=== PATIENT | female | born 1940 | race Caucasian/White ===

== ENCOUNTER 2016-04-03 12:33 | Observation (INO) ==
--- NOTE | 2016-04-03 14:07 | General Surg History&Physical ---
<Rosalia Arroyo - Last Filed: 04/03/16 15:46> Date of Encounter: 04/03/16 Time of Encounter: 14:04 Assessment and Plan (1) Hematoma of right lower extremity Current Visit: Yes Status: Acute The assessment and plan as outlined above was discussed with the patient and/or family members who expressed understanding and agreement. All questions were answered. hematoma evacuation today NPO except meds IVF pain control supportive care Qualifiers: Encounter type: initial encounter Qualified Code(s): S80.11XA - Contusion of right lower leg, initial encounter (2) Paroxysmal a-fib Current Visit: Yes Status: Acute continue home medications - propafenone and cardizem hold coumadin due to surgery (3) HTN (hypertension) Current Visit: Yes Status: Acute continue home medication - atenolol Qualifiers: Hypertension type: essential hypertension Qualified Code(s): I10 - Essential (primary) hypertension (4) DVT prophylaxis Current Visit: Yes Status: Acute heparin 5,000 units subcutaneous for DVT prophylaxis History of Present Illness Chief complaint: hematoma of right lower leg HPI: Ms. Block is a 76 year old female on chronic coumadin therapy that fell on and was bruised from mid thigh to mid calf. She now has a 15x10 cm tense painful accumulation with overlying skin necrosis from upper medial to right lower leg. Findings are consistent with a tense hematoma causing skin necrosis and severe pain. Past Med Surg Social Fam HX - Past Medical History Medical history: atrial fibrillation (paroxysmal), GERD, hyperlipidemia, hypertension, valvular heart disease (aortic regurgitation) Psychiatric history: anxiety - Past Surgical History Surgical History: non-contributory - Social History Smoking Status: Never smoker Smokeless Tobacco Status: No Alcohol use: none Drug use: none Medications and Allergies Warfarin [Coumadin] 4 mg PO DAILY 06/07/15 [History] Famotidine [Pepcid] 20 mg PO BID #60 tablet 10/20/15 [Rx] Alprazolam [Xanax 0.25 MG Tablet] 0.25 mg PO BID PRN 03/19/16 [History] Ascorbate Calcium/Bioflavonoid [Jenae-C 500 mg Tablet] 500 mg PO DAILY 03/19/16 [History] Aspirin 81 mg PO DAILY 03/19/16 [History] Atenolol [Tenormin] 50 mg PO BID 03/19/16 [History] Cholecalciferol (D-3) [Vitamin D] 1,000 unit PO DAILY 03/19/16 [History] Doxepin [Sinequan] 25 mg PO HS 03/19/16 [History] Garlic [Odor Free Garlic] 1,000 mg PO DAILY 03/19/16 [History] Glucosamn/Condroitn/C/Mn/[place] [Cvs Glucosamine Chondroitin Tb] 1 tab PO DAILY 03/19/16 [History] L. Acidophilus/Pectin, [place] [Acidophilus Probiotic Capsule] 1 cap PO DAILY [History] Magnesium Oxide [Magnesium] 250 mg PO BID 03/19/16 [History] Meclizine HCl [Verticalm] 25 mg PO BID PRN 03/19/16 [History] Multivitamin [One Daily Essential] 1 tab PO DAILY 03/19/16 [History] [place]-3/Dha/Epa/Fish Oil [Fish Oil 1,000 mg Softgel] 1,000 mg PO DAILY 03/19/16 [History] Polyethylene Glycol 3350 [MiraLAX] 17 gm PO DAILY 03/19/16 [History] Potassium Gluconate 550 mg PO DAILY 03/19/16 [History] Propafenone HCl [Propafenone HCl] 150 mg PO TID 03/19/16 [History] Raloxifene [Evista] 60 mg PO DAILY 03/19/16 [History] Rosuvastatin [Crestor] 20 mg PO DAILY 03/19/16 [History] Vitamin B Complex Vit C No.4 [Super B Complex] 150 mg PO DAILY 03/19/16 [History ] Diltiazem CD (24hr) [Cardizem CD] 120 mg PO DAILY 04/03/16 [History] Hydrocodone/Acetaminophen [[place] 5-325 Tablet] 1 tab PO Q6H PRN 04/03/16 [ History] Allergies No Known Allergies Allergy (Verified 06/07/15 11:49) Review of Systems All systems PM: A 10-system review of systems was performed and is negative for pertinent findings except as documented above in the HPI. - Constitutional no fever(s), no weight loss - EENT Ears: bilateral: decreased hearing Nose, mouth and throat: hoarseness (occasionally), no dysphagia - Cardiovascular claudication, pedal edema, no chest pain, no irregular heart rhythm, no palpitations - Respiratory dyspnea on exertion, no cough, no dyspnea, no hemoptysis, no excessive phlegm production - Gastrointestinal constipation, no abdominal pain, no change in stool character, no diarrhea, no hematochezia, no nausea, no vomiting - Genitourinary Genitourinary: nocturia, urinary frequency (drinks a lot of fluid/water), no dysuria, no hematuria - Musculoskeletal arthralgias, no myalgias - Integumentary no rash - Neurological dizziness, no headache(s) General Surgery Exam Initial Vital Signs Temp Pulse Resp BP Pulse Ox 97.9 F 63 16 149/72 97 04/03/16 13:14 04/03/16 13:14 04/03/16 13:14 04/03/16 13:14 04/03/16 13:14 - General physical appearance well developed, well nourished, no distress - Eyes PERRL, normal ocular movement - ENT normal mucosa, atraumatic, normocephalic - Neck trachea midline - Respiratory normal respiratory effort, clear to auscultation - Cardiovascular Cardiovascular exam: Present: RRR - Abdomen Abdomen general surgery: Present: bowel sounds present, soft, non tender - Integumentary Integumentary general surgery: Present: other (15x10 cm tense, painful accumulation with overlying skin necrosis from upper medial to right lower leg consistent with tense hematoma causing skin necrosis and severe pain) - Neurologic Present: CN 2-12 grossly intact - Psychiatric Psychiatric general surgery: Present: A&Ox3, speech is normal, memory intact Results - Labs All other labs normal. <Job Hall - Last Filed: 04/03/16 19:32> History of Present Illness HPI: Ms. Block is a 76 year old female Review of Systems All systems PM: A 10-system review of systems was performed and is negative for pertinent findings except as documented above in the HPI. General Surgery Exam Initial Vital Signs Temp Pulse Resp BP Pulse Ox 97.9 F 63 16 149/72 97 04/03/16 13:14 04/03/16 13:14 04/03/16 13:14 04/03/16 13:14 04/03/16 13:14 Results - Labs All other labs normal. - Attending Attestation I examined this patient and my medical decision-making was reviewed with the AIRCRAFT MECHANIC ELECTRICAL AND RADIO/PA/Advanced Practice Nurse/Resident Physician. I agree with the documented findings, disposition and treatment plan as described except to the extent set forth below. Job Hall MD FACS
[2016-04-03] MEDS ORDERED: ALPRAZolam 0.25 MG TABLET PO PRN ×2 (15:26→20:23)
[2016-04-03] MEDS ORDERED: Ondansetron 4 MG/2 ML VIAL IVP PRN ×2 (15:32→20:23)
[2016-04-03] MEDS ORDERED: *HR* HYDROmorphone (PF) 1 MG/ML SYRINGE IVP PRN ×2 (15:32)
[2016-04-03] MEDS ORDERED: Water for inj. (sterile) 0 ML IV ONE (15:35)
[2016-04-03] MEDS ORDERED: Bupivacaine/EPI 1:200k 0.5%PF 10 ML VIAL ONE (15:35)
[2016-04-03] MEDS ORDERED: 0.9 % Sodium Chloride 1,000 ML IVC SCH (15:45)
--- NOTE | 2016-04-03 18:34 | Anesthesia Evaluation PreOp ---
Date of Encounter: 04/03/16 Time of Encounter: 18:28 - Past History Planned Operation: Right Lower Extremity Hematoma Evacuation Cardiac History: HTN, Hyperlipidemia, Arrhythmia (H/O A-Fib) Pulmonary History: Denies Any Significant HX FINANCE ADVISOR History: Denies Any Significant HX Other Medical History: GERD Anesthesia History: No Prior Anesthetic Complications, Past Anesthesia Alcohol Use: none Drug use: none Medications and Allergies Warfarin [Coumadin] 4 mg PO DAILY 06/07/15 [History] Famotidine [Pepcid] 20 mg PO BID #60 tablet 10/20/15 [Rx] Alprazolam [Xanax 0.25 MG Tablet] 0.25 mg PO BID PRN 03/19/16 [History] Ascorbate Calcium/Bioflavonoid [Jenae-C 500 mg Tablet] 500 mg PO DAILY 03/19/16 [History] Aspirin 81 mg PO DAILY 03/19/16 [History] Atenolol [Tenormin] 50 mg PO BID 03/19/16 [History] Cholecalciferol (D-3) [Vitamin D] 1,000 unit PO DAILY 03/19/16 [History] Doxepin [Sinequan] 25 mg PO HS 03/19/16 [History] Garlic [Odor Free Garlic] 1,000 mg PO DAILY 03/19/16 [History] Glucosamn/Condroitn/C/Mn/[place] [Cvs Glucosamine Chondroitin Tb] 1 tab PO DAILY 03/19/16 [History] L. Acidophilus/Pectin, [place] [Acidophilus Probiotic Capsule] 1 cap PO DAILY [History] Magnesium Oxide [Magnesium] 250 mg PO BID 03/19/16 [History] Meclizine HCl [Verticalm] 25 mg PO BID PRN 03/19/16 [History] Multivitamin [One Daily Essential] 1 tab PO DAILY 03/19/16 [History] [place]-3/Dha/Epa/Fish Oil [Fish Oil 1,000 mg Softgel] 1,000 mg PO DAILY 03/19/16 [History] Polyethylene Glycol 3350 [MiraLAX] 17 gm PO DAILY 03/19/16 [History] Potassium Gluconate 550 mg PO DAILY 03/19/16 [History] Propafenone HCl [Propafenone HCl] 150 mg PO TID 03/19/16 [History] Raloxifene [Evista] 60 mg PO DAILY 03/19/16 [History] Rosuvastatin [Crestor] 20 mg PO DAILY 03/19/16 [History] Vitamin B Complex Vit C No.4 [Super B Complex] 150 mg PO DAILY 03/19/16 [History ] Diltiazem CD (24hr) [Cardizem CD] 120 mg PO DAILY 04/03/16 [History] Hydrocodone/Acetaminophen [[place] 5-325 Tablet] 1 tab PO Q6H PRN 04/03/16 [ History] Allergies No Known Allergies Allergy (Verified 06/07/15 11:49) - Meds/Allergy Pre-op Review Medications Reviewed: Yes Allergies Reviewed: Yes Beta Blockers on Current Med List: Yes If Beta Blockers taken, Date/Time (Last Dose taken): 04/02/2016 at 2300 Anesthesia Results - Labs Laboratory Tests 01/06/14 02/10/15 11/15/15 06:35 16:29 09:21 WBC Hgb Hct Plt Count PT 24.0 H INR 2.21 PTT 30.7 Sodium 137 Potassium 3.9 BUN 6 L Creatinine 0.73 11/24/15 09:40 WBC 3.8 L Hgb 13.9 Hct 41.0 Plt Count 179 PT INR PTT Sodium Potassium BUN Creatinine - Imaging EKG: report reviewed (10/20/2015 SR, 1st degree AV block, marked LAD) Additional studies: 12/14/2015 Echo LVEF 60% modrate LV disatolic dysfunction moderate eccentric AR mild-moderate MR moderate TR mild pulmonary HTN 12/01/2015 Stress Echo Stress ECG is negative for ischemia negative stress ECG/echo for ischemia hypotensive BP response to exercise Anesthesia Exam Vital Signs/O2 Sat, Most Current Temp Pulse Resp BP Pulse Ox 98.2 F 57 16 151/76 98 04/03/16 15:14 04/03/16 15:14 04/03/16 15:14 04/03/16 15:14 04/03/16 15:14 Height: 5'1''/1.55 m Weight: 151 lbs/68.6 kg NPO (# of Hours): 8 Pain Scale: 0 Pain Scale Used: Numeric (1 - 10) - HEENT Pupil (Motor): EOMI Mallampati: II Teeth: Normal Denture Type: Upper: Complete Oral Opening: Greater than 3 - FINANCE ADVISOR LOC: Oriented FINANCE ADVISOR Motor: Normal RUE, Normal LUE, Normal RLE, Normal LLE, Normal Face FINANCE ADVISOR Sensory: Normal: RUE, LUE, RLE, LLE, Face - Cardiac Rhythm: Regular Murmur: Systolic - Pulmonary Breath Sounds: bilateral Clear Respiratory Effort: Symmetrical Anesthesia Assess/Plan ASA Score: 3 Modified [place] Scale for Level of Consciousness: Cooperative, oriented, and tranquil Anesthetic Plan: General Monitoring Plan: Standard Monitors Recovery Plan: PACU
[2016-04-03] MEDS ORDERED: *HR* FentaNYL (PF) 100 MCG/2 ML VIAL ONE ×2 (18:49→19:10)
[2016-04-03] MEDS ORDERED: *HR* Propofol 200 MG/20 ML VIAL IVP ONE (18:49)
[2016-04-03] MEDS ORDERED: Lidocaine -MPF 2% 2 ML VIAL ONE (18:50)
[2016-04-03] MEDS ORDERED: EPHEDrine 50 MG/ML VIAL ONE (19:17)
[2016-04-03] MEDS ORDERED: Ondansetron 4 MG/2 ML VIAL ONE (19:21)
[2016-04-03] MEDS ORDERED: Dexamethasone 4 MG/ML VIAL ONE (19:21)
--- NOTE | 2016-04-03 19:31 | Operative Note ---
Date of procedure: 04/03/16 Pre-op diagnosis: Hematoma right lower extremity with skin necrosis Post-op diagnosis: same Procedure: #1 evacuation of hematoma right lower extremity. #2 full-thickness debridement of skin to the level of fascia Anesthesia: PER Surgeon: Job Hall Estimated blood loss (cc): 25 Specimen: none Condition: stable Disposition: PACU Procedure in Detail: After informed consent and appropriate patient identification and timeout the patient is taken to the operating room placed in the supine position and given adequate general endotracheal anesthesia. Timeout was taken patient was identified. The right leg was prepped and draped in sterile fashion utilizing Betadine solution and sterile draping techniques. There was a central area of skin necrosis. Lateralizing sara was identified. A vertical incision was made overlying the thinnest area of the skin and the hematoma cavity was entered. A large amount of hematoma was evacuated. The hematoma extended from the level of the periosteum to the level of the epidermis. The overlying epidermis was debrided full-thickness and this was to the level of the fascia. The hematoma was completely evacuated and the cavity was irrigated with copious amounts of antibiotic containing solution. The wound was packed with saline impregnated Kerlix. She will be converted to negative pressure wound dressing tomorrow. Minimal bleeding. 25 mL blood loss. Transferred to the recovery room in stable condition.
--- NOTE | 2016-04-03 19:59 | Anesthesia Evaluation Post Op ---
Date of Encounter: 04/03/16 Time of Encounter: 23:45 - Vital Signs Vital Signs: Vital Signs/O2 Sat/Glucose, Most Current Temp Pulse Resp BP Pulse Ox 04/03/16 19:55 67 14 152/73 97 04/03/16 19:45 64 12 142/67 96 04/03/16 19:35 97.0 F L 63 10 138/67 98 - Lungs Lungs: Clear Ascult./Percussion - Airway Airway: Non-obstructed - Cardiovascular Regular Rate - Mental Status Mental Status: Alert & Oriented, Answers Appropriately - Pain Pain Scale: 0 - Nausea Vomiting Nausea Vomiting: Not Present - Hydration Hydration: Ice chips - Discharge PostOp Status: Transfer Patient to floor
[2016-04-03] MEDS ORDERED: Famotidine 20 MG TABLET PO SCH (21:00)
[2016-04-03] MEDS: Famotidine 20 MG TABLET PO SCH (21:23)
[2016-04-04] MEDS: 0.9 % Sodium Chloride 1,000 ML IVC SCH (04:33)
[2016-04-04] MEDS: Diltiazem CD (24hr) 120 MG CAPSULE PO SCH (06:25)
--- NOTE | 2016-04-04 07:18 | General Surgery Progress Note ---
<Rosalia Arroyo - Last Filed: 04/04/16 07:16> Date of Encounter: 04/04/16 Time of Encounter: 07:16 - Assessment and Plan (1) Hematoma of right lower extremity Current Visit: Yes Status: Acute POD #1 evacuation of hematoma wound is currently bleeding - elevated leg, calcium algonate dressings hold coumadin and heparin pain control supportive care Qualifiers: Encounter type: initial encounter Qualified Code(s): S80.11XA - Contusion of right lower leg, initial encounter (2) Paroxysmal a-fib Current Visit: Yes Status: Acute Cardizem and Rhythmol coumadin being held due to active bleeding (3) HTN (hypertension) Current Visit: Yes Status: Acute atenolol hydralazine PRN Qualifiers: Hypertension type: essential hypertension Qualified Code(s): I10 - Essential (primary) hypertension (4) DVT prophylaxis Current Visit: Yes Status: Acute SCD to left leg only Subjective Patient reports: no new complaints, afebrile, other (bleeding from leg) Objective Vital Signs - Last 8 Hours Temp Pulse Resp BP Pulse Ox 04/04/16 04:00 97.9 F 71 16 112/69 94 L 04/03/16 23:37 98.1 F 63 14 144/73 96 Intake and Output 04/03/16 04/03/16 04/04/16 15:59 23:59 07:59 Intake Total 0 / 0 200 / 200 Output Total 1760 / 1760 Balance 0 / 0 -1560 / -1560 Intake: Oral 0 / 0 200 / 200 Output: Urine 1750 / 1750 Estimated Blood Loss 10 / 10 Other: Stool Size Moderate Stool Consistency soft Stool Color Brown # Voids 1 Weight 68.6 kg - General physical appearance well developed, well nourished, no distress - Eyes normal ocular movement - ENT normal mucosa, atraumatic, normocephalic - Neck Neck exam: trachea midline - Respiratory normal respiratory effort, clear to auscultation - Cardiovascular Cardiovascular exam: Present: RRR - Abdomen Abdomen: Present: bowel sounds present, soft, non tender - Integumentary no rash, other (abd pad dressing with some blood on underside) - Neurologic CN 2-12 grossly intact - Musculoskeletal normal gait, normal posture - Psychiatric oriented to time, oriented to person, oriented to place, speech is normal, memory intact - VTE Documentation of Mechanical Device: Intermittent pneumatic compression device Consult Discharge Plan - Plan Referrals: Diya Donahue CNP [Partnered Physician] - 05/24/16 10:30 am Soila De León MD [Partnered Physician] - 09/07/16 10:20 am Allison Contreras MD [Primary Care Provider] - <Job Hall - Last Filed: 04/05/16 07:44> Objective Vital Signs - Last 8 Hours Temp Pulse Resp BP Pulse Ox 04/05/16 06:42 97.6 F 73 16 119/67 95 04/05/16 00:00 97.8 F 64 17 115/71 96 Intake and Output 04/04/16 04/04/16 04/05/16 15:59 23:59 07:59 Intake Total 480 / 480 810 / 810 Output Total 1225 / 1225 800 / 800 Balance 480 / 480 -415 / -415 -800 / -800 Intake: Oral 480 / 480 810 / 810 Output: Urine 1225 / 1225 800 / 800 Other: Meal Lunch Dinner Percent of Meal Consumed 50% # Voids 1 2 - Attending Attestation I examined this patient and my medical decision-making was reviewed with the RAG INSPECTOR/PA/Advanced Practice Nurse/Resident Physician. I agree with the documented findings, disposition and treatment plan as described except to the extent set forth below. Job Hall MD FACS
[2016-04-04] MEDS ORDERED: Diltiazem CD (24hr) 120 MG CAPSULE PO SCH (09:00)
[2016-04-04] MEDS: *HR* OxyCODONE/APAP 10/325 TABLET PO PRN (15:14)
[2016-04-04] MEDS ORDERED: *HR* Heparin 5,000 UNIT/ML VIAL SQ SCH (15:39)
[2016-04-04] MEDS: Famotidine 20 MG TABLET PO SCH (20:24)
[2016-04-05] MEDS: Diltiazem CD (24hr) 120 MG CAPSULE PO SCH (08:15)
--- NOTE | 2016-04-05 13:19 | Discharge Summary ---
Date of Encounter: 04/05/16 Time of Encounter: 13:16 - Discharge Diagnosis (1) Hematoma of right lower extremity Priority: Primary Status: Acute Qualifiers: Encounter type: initial encounter Qualified Code(s): S80.11XA - Contusion of right lower leg, initial encounter (2) Paroxysmal a-fib Priority: Secondary Status: Acute (3) HTN (hypertension) Priority: Secondary Status: Acute Qualifiers: Hypertension type: essential hypertension Qualified Code(s): I10 - Essential (primary) hypertension (4) DVT prophylaxis Priority: Secondary Status: Acute - Discharge Medications Prescriptions: OxyCODONE/APAP 10/325 [Percocet 10/325 MG] 1 each PO Q6HR PRN #24 tablet PRN Reason: Pain Home Medications: Warfarin [Coumadin] 4 mg PO DAILY 06/07/15 [History] Famotidine [Pepcid] 20 mg PO BID #60 tablet 10/20/15 [Rx] Alprazolam [Xanax 0.25 MG Tablet] 0.25 mg PO BID PRN 03/19/16 [History] Ascorbate Calcium/Bioflavonoid [Jenae-C 500 mg Tablet] 500 mg PO DAILY 03/19/16 [History] Aspirin 81 mg PO DAILY 03/19/16 [History] Atenolol [Tenormin] 50 mg PO BID 03/19/16 [History] Cholecalciferol (D-3) [Vitamin D] 1,000 unit PO DAILY 03/19/16 [History] Doxepin [Sinequan] 25 mg PO HS 03/19/16 [History] Garlic [Odor Free Garlic] 1,000 mg PO DAILY 03/19/16 [History] Glucosamn/Condroitn/C/Mn/[place] [Cvs Glucosamine Chondroitin Tb] 1 tab PO DAILY 03/19/16 [History] L. Acidophilus/Pectin, [place] [Acidophilus Probiotic Capsule] 1 cap PO DAILY [History] Magnesium Oxide [Magnesium] 250 mg PO BID 03/19/16 [History] Meclizine HCl [Verticalm] 25 mg PO BID PRN 03/19/16 [History] Multivitamin [One Daily Essential] 1 tab PO DAILY 03/19/16 [History] [place]-3/Dha/Epa/Fish Oil [Fish Oil 1,000 mg Softgel] 1,000 mg PO DAILY 03/19/16 [History] Polyethylene Glycol 3350 [MiraLAX] 17 gm PO DAILY 03/19/16 [History] Potassium Gluconate 550 mg PO DAILY 03/19/16 [History] Propafenone HCl 150 mg PO TID 03/19/16 [History] Raloxifene [Evista] 60 mg PO DAILY 03/19/16 [History] Rosuvastatin [Crestor] 20 mg PO DAILY 03/19/16 [History] Vitamin B Complex Vit C No.4 [Super B Complex] 150 mg PO DAILY 03/19/16 [History ] Diltiazem CD (24hr) [Cardizem CD] 120 mg PO DAILY 04/03/16 [History] Hydrocodone/Acetaminophen [[place] 5-325 Tablet] 1 tab PO Q6H PRN 04/03/16 [ History] OxyCODONE/APAP 10/325 [Percocet 10/325 MG] 1 each PO Q6HR PRN #24 tablet [Rx] Allergies/Adverse Reactions: Allergies No Known Allergies Allergy (Verified 06/07/15 11:49) General Surgery Exam Initial Vital Signs Temp Pulse Resp BP Pulse Ox 97.9 F 63 16 149/72 97 04/03/16 13:14 04/03/16 13:14 04/03/16 13:14 04/03/16 13:14 04/03/16 13:14 - General physical appearance well developed, well nourished, no distress - Eyes normal ocular movement - ENT normal mucosa, atraumatic, normocephalic - Neck trachea midline - Respiratory normal respiratory effort, clear to auscultation - Cardiovascular Cardiovascular exam: Present: RRR - Abdomen Abdomen general surgery: Present: bowel sounds present, soft, non tender - Integumentary Integumentary general surgery: Present: warm and dry - Neurologic Present: CN 2-12 grossly intact, normal coordination - Musculoskeletal Present: normal gait - Psychiatric Psychiatric general surgery: Present: A&Ox3, speech is normal, memory intact - Additional Findings dressing intact to right LE Date of admission: 04/03/16 12:48 Primary care physician: Allison Contreras Discharging clinician: Rosalia Arroyo Anticipated date of discharge: 04/05/16 - Patient Status Disposition: Home Health Service Condition: Good Functional capacity at discharge: independent ambulation Overall status at discharge: patient is back to baseline - Discharge Instructions Follow Up With: Diya Donahue CNP [Partnered Physician] - 05/24/16 10:30 am Soila De León MD [Partnered Physician] - 09/07/16 10:20 am Allison Contreras MD [Primary Care Provider] - Additional Instructions: Restart your coumadin tomorrow. Do NOT take any additional doses. Wait 1 week before having your INR checked. - Diet and Activity Activity: resume usual activities as tolerated Diet: regular diet - Hospital Course Hospital course: Ms. Block is a 76 year old female on chronic coumadin therapy that fell beth and bruised from mid thigh to mid calf. She had a 15x10 cm tense paiinful accumulation with overlying skin necrosis upper medial right lower leg. Findings consistent with tense hematoma. The hematoma was evacuated in the OR, the area packed, and dressing applied. Her coumadin and aspirin were held after surgery due to active bleeding. Dressings were changed daily. - Time Spent with Patient Total time spent providing and/or coordinating discharge services:
--- NOTE | 2016-04-05 13:54 | Physician Discharge Referral ---
Home Health/Hosp Referral Info Transfer to: Home Health Provider in Charge Post Discharge: PCP - Diagnosis (1) Hematoma of right lower extremity Priority: Primary Status: Acute (2) Paroxysmal a-fib Priority: Secondary Status: Acute (3) HTN (hypertension) Priority: Secondary Status: Acute (4) DVT prophylaxis Priority: Secondary Status: Acute - Respiratory Orders Smoking Cessation: Smoking cessation has been advised. For more information, call the [facility] Tobacco Quit Line at 6-176-AXNV-NOW. - Dressing/Wound Care Site: right lower extremity Type of Dressing/Treatments w/Frequency: wound vac change M-W-F - Transfer Medications Prescriptions: OxyCODONE/APAP 10/325 [Percocet 10/325 MG] 1 each PO Q6HR PRN #24 tablet PRN Reason: Pain Home Medications: Warfarin [Coumadin] 4 mg PO DAILY 06/07/15 [History] Famotidine [Pepcid] 20 mg PO BID #60 tablet 10/20/15 [Rx] Alprazolam [Xanax 0.25 MG Tablet] 0.25 mg PO BID PRN 03/19/16 [History] Ascorbate Calcium/Bioflavonoid [Jenae-C 500 mg Tablet] 500 mg PO DAILY 03/19/16 [History] Aspirin 81 mg PO DAILY 03/19/16 [History] Atenolol [Tenormin] 50 mg PO BID 03/19/16 [History] Cholecalciferol (D-3) [Vitamin D] 1,000 unit PO DAILY 03/19/16 [History] Doxepin [Sinequan] 25 mg PO HS 03/19/16 [History] Garlic [Odor Free Garlic] 1,000 mg PO DAILY 03/19/16 [History] Glucosamn/Condroitn/C/Mn/[place] [Cvs Glucosamine Chondroitin Tb] 1 tab PO DAILY 03/19/16 [History] L. Acidophilus/Pectin, [place] [Acidophilus Probiotic Capsule] 1 cap PO DAILY [History] Magnesium Oxide [Magnesium] 250 mg PO BID 03/19/16 [History] Meclizine HCl [Verticalm] 25 mg PO BID PRN 03/19/16 [History] Multivitamin [One Daily Essential] 1 tab PO DAILY 03/19/16 [History] [place]-3/Dha/Epa/Fish Oil [Fish Oil 1,000 mg Softgel] 1,000 mg PO DAILY 03/19/16 [History] Polyethylene Glycol 3350 [MiraLAX] 17 gm PO DAILY 03/19/16 [History] Potassium Gluconate 550 mg PO DAILY 03/19/16 [History] Propafenone HCl 150 mg PO TID 03/19/16 [History] Raloxifene [Evista] 60 mg PO DAILY 03/19/16 [History] Rosuvastatin [Crestor] 20 mg PO DAILY 03/19/16 [History] Vitamin B Complex Vit C No.4 [Super B Complex] 150 mg PO DAILY 03/19/16 [History ] Diltiazem CD (24hr) [Cardizem CD] 120 mg PO DAILY 04/03/16 [History] Hydrocodone/Acetaminophen [[place] 5-325 Tablet] 1 tab PO Q6H PRN 04/03/16 [ History] OxyCODONE/APAP 10/325 [Percocet 10/325 MG] 1 each PO Q6HR PRN #24 tablet [Rx] Allergies/Adverse Reactions: Allergies No Known Allergies Allergy (Verified 06/07/15 11:49) Certification: Further, I certify that my clinical findings support that this patient is homebound (i.e. absences from home require considerable and taxing effort and are for medical reasons or restorationism services or infrequently or short duration when for other reasons) because: Attestation: My signature below is to certify that this patient is under my care and that I, or nurse practitioner, or a physician's orthodontic technician assistant working with me, has a face-to -face encounter with this patient.
[2016-04-05] MEDS: *HR* OxyCODONE/APAP 10/325 TABLET PO PRN (14:37)
--- NOTE | 2016-04-05 15:46 | General Surgery Progress Note ---
<Rosalia Arroyo - Last Filed: 04/05/16 15:44> Date of Encounter: 04/05/16 Time of Encounter: 15:44 - Assessment and Plan (1) Hematoma of right lower extremity Current Visit: Yes Status: Acute POD #2 evacuation of hematoma calcium alginate dressing, start wound vac tomorrow morning then discharge home patient may resume coumadin tomorrow upon d/c - no loading dose pain control supportive care Qualifiers: Encounter type: initial encounter Qualified Code(s): S80.11XA - Contusion of right lower leg, initial encounter (2) Paroxysmal a-fib Current Visit: Yes Status: Acute Cardizem and Rhythmol coumadin to be restarted tomorrow (3) HTN (hypertension) Current Visit: Yes Status: Acute atenolol hydralazine PRN Qualifiers: Hypertension type: essential hypertension Qualified Code(s): I10 - Essential (primary) hypertension (4) DVT prophylaxis Current Visit: Yes Status: Acute SCD to left leg only Subjective Patient reports: no new complaints, voiding w/o difficulty, afebrile Objective Vital Signs - Last 8 Hours Temp Pulse Resp BP Pulse Ox 04/05/16 14:08 98.7 F 86 18 136/58 97 04/05/16 11:08 98.7 F 81 16 133/54 98 Intake and Output 04/04/16 04/05/16 04/05/16 23:59 07:59 15:59 Intake Total 810 / 810 Output Total 1225 / 1225 800 / 800 Balance -415 / -415 -800 / -800 Intake: Oral 810 / 810 Output: Urine 1225 / 1225 800 / 800 Other: Meal Dinner # Voids 2 - General physical appearance well developed, well nourished, no distress - Eyes normal ocular movement - ENT normal mucosa, atraumatic, normocephalic - Neck Neck exam: trachea midline - Respiratory normal respiratory effort, clear to auscultation - Cardiovascular Cardiovascular exam: Present: RRR - Abdomen Abdomen: Present: bowel sounds present, soft, non tender - Integumentary no rash - Neurologic CN 2-12 grossly intact - Musculoskeletal normal gait - Psychiatric oriented to time, oriented to person, oriented to place, speech is normal, memory intact - Additional Exam dressing intact to right LE - VTE Documentation of Mechanical Device: Intermittent pneumatic compression device Consult Discharge Plan - Plan Additional Instructions: Restart your coumadin today. Do NOT take any additional doses. Wait 1 week before having your INR checked. May shower, no tub baths Wound vac- change every -- per home health care No driving while on narcotics May climb stairs Referrals: Diya Donahue CNP [Partnered Physician] - 05/24/16 10:30 am Kandi Nicole CNP [Advanced Practice Nurse] - 04/16/16 10:15 am (hospital follow-up; wound check) Soila De León MD [Partnered Physician] - 09/07/16 10:20 am Allison Contreras MD [Primary Care Provider] - Prescriptions: OxyCODONE/APAP 5/325 [Percocet 5/325 MG] 1 each PO Q8HR PRN #21 tablet PRN Reason: Pain <Job Hall - Last Filed: 04/06/16 19:18> Objective Intake and Output 04/06/16 04/06/16 04/06/16 07:59 15:59 23:59 Intake Total 850 / 850 1240 / 1240 Output Total 980 / 980 1800 / 1800 Balance -130 / -130 -560 / -560 Intake: IV Fluids 1000 / 1000 0.9 % Sodium Chloride 1, 1000 / 1000 000 ML @ 50 mls/hr IVC . Q20H NISHA Rx#:[id number] Oral 850 / 850 240 / 240 Output: Urine 980 / 980 1800 / 1800 Other: Meal Lunch Percent of Meal Consumed 25% - Attending Attestation I examined this patient and my medical decision-making was reviewed with the PROJECT CONTROLS SCHEDULER/PA/Advanced Practice Nurse/Resident Physician. I agree with the documented findings, disposition and treatment plan as described except to the extent set forth below. Job Hall MD
[2016-04-05] MEDS: 0.9 % Sodium Chloride 1,000 ML IVC SCH (17:51)
[2016-04-05] MEDS: Famotidine 20 MG TABLET PO SCH (21:54)
[2016-04-06 07:21] VITALS: BP 103/58
[2016-04-06] MEDS: Diltiazem CD (24hr) 120 MG CAPSULE PO SCH (08:16)
[2016-04-06] MEDS: 0.9 % Sodium Chloride 1,000 ML IVC SCH (14:56)
[2016-04-06] MEDS ORDERED: *HR* OxyCODONE/APAP 5/325 TABLET PO ONE (15:41)
--- NOTE | 2016-04-06 15:48 | Discharge Summary ---
<Kandi Nicole A - Last Filed: 04/06/16 15:45> Date of Encounter: 04/06/16 Time of Encounter: 15:45 - Discharge Diagnosis (1) Hematoma of right lower extremity Priority: Primary Status: Resolved Qualifiers: Encounter type: initial encounter Qualified Code(s): S80.11XA - Contusion of right lower leg, initial encounter (2) HTN (hypertension) Priority: Secondary Status: Chronic Qualifiers: Hypertension type: essential hypertension Qualified Code(s): I10 - Essential (primary) hypertension (3) Paroxysmal a-fib Priority: Secondary Status: Chronic - Discharge Medications Prescriptions: OxyCODONE/APAP 5/325 [Percocet 5/325 MG] 1 each PO Q8HR PRN #21 tablet PRN Reason: Pain Home Medications: Warfarin [Coumadin] 4 mg PO DAILY 06/07/15 [History] Famotidine [Pepcid] 20 mg PO BID #60 tablet 10/20/15 [Rx] Alprazolam [Xanax 0.25 MG Tablet] 0.25 mg PO BID PRN 03/19/16 [History] Ascorbate Calcium/Bioflavonoid [Jenae-C 500 mg Tablet] 500 mg PO DAILY 03/19/16 [History] Aspirin 81 mg PO DAILY 03/19/16 [History] Atenolol [Tenormin] 50 mg PO BID 03/19/16 [History] Cholecalciferol (D-3) [Vitamin D] 1,000 unit PO DAILY 03/19/16 [History] Doxepin [Sinequan] 25 mg PO HS 03/19/16 [History] Garlic [Odor Free Garlic] 1,000 mg PO DAILY 03/19/16 [History] Glucosamn/Condroitn/C/Mn/Ethel [Cvs Glucosamine Chondroitin Tb] 1 tab PO DAILY 03/19/16 [History] L. Acidophilus/Pectin, [place] [Acidophilus Probiotic Capsule] 1 cap PO DAILY [History] Magnesium Oxide [Magnesium] 250 mg PO BID 03/19/16 [History] Meclizine HCl [Verticalm] 25 mg PO BID PRN 03/19/16 [History] Multivitamin [One Daily Essential] 1 tab PO DAILY 03/19/16 [History] [place]-3/Dha/Epa/Fish Oil [Fish Oil 1,000 mg Softgel] 1,000 mg PO DAILY 03/19/16 [History] Polyethylene Glycol 3350 [MiraLAX] 17 gm PO DAILY 03/19/16 [History] Potassium Gluconate 550 mg PO DAILY 03/19/16 [History] Propafenone HCl 150 mg PO TID 03/19/16 [History] Raloxifene [Evista] 60 mg PO DAILY 03/19/16 [History] Rosuvastatin [Crestor] 20 mg PO DAILY 03/19/16 [History] Vitamin B Complex Vit C No.4 [Super B Complex] 150 mg PO DAILY 03/19/16 [History ] Diltiazem CD (24hr) [Cardizem CD] 120 mg PO DAILY 04/03/16 [History] OxyCODONE/APAP 5/325 [Percocet 5/325 MG] 1 each PO Q8HR PRN #21 tablet 04/06/16 [Rx] Allergies/Adverse Reactions: Allergies No Known Allergies Allergy (Verified 06/07/15 11:49) General Surgery Exam Initial Vital Signs Temp Pulse Resp BP Pulse Ox 97.9 F 63 16 149/72 97 04/03/16 13:14 04/03/16 13:14 04/03/16 13:14 04/03/16 13:14 04/03/16 13:14 - General physical appearance well developed, well nourished, no distress - Eyes normal ocular movement - ENT normal mucosa, atraumatic, normocephalic - Neck trachea midline - Respiratory normal expansion, normal respiratory effort, clear to auscultation - Cardiovascular Cardiovascular exam: Present: irregular rhythm - Abdomen Abdomen general surgery: Present: bowel sounds present, soft, non tender - Incision Incision: Present: draining, serosanguinous, open - Integumentary Integumentary general surgery: Present: warm and dry - Neurologic Present: CN 2-12 grossly intact, normal coordination, normal sensation - Musculoskeletal Present: normal gait, normal posture - Psychiatric Psychiatric general surgery: Present: appropriate, oriented to person, oriented to place, oriented to time, speech is normal, memory intact Date of admission: 04/03/16 12:48 Primary care physician: Allison Contreras Consults: 04/05/16 13:39 Consult to Coil Winder [CONS] Stat Reason for SW Consult: discharge planning- needs home wound vac (plan for discharge to home today, may deliver vac to home for home health to place when approved) 04/05/16 17:11 Consult to Occupational Therapy [CONS] Routine Comment: Evaluate, develop and implement POC Consult to Physical Therapy [CONS] Routine Comment: Evaluate, develop and implement POC Discharging clinician: Job Hall (Johnny Nicole) Anticipated date of discharge: 04/06/16 - Patient Status Disposition: Home Health Service Condition: Good Functional capacity at discharge: independent ambulation Overall status at discharge: patient is progressing back to baseline - Discharge Instructions Follow Up With: Diya Donahue CNP [Partnered Physician] - 05/24/16 10:30 am Soila De León MD [Partnered Physician] - 09/07/16 10:20 am Allison Contreras MD [Primary Care Provider] - Kandi Nicole CNP [Advanced Practice Nurse] - 04/16/16 10:15 am (hospital follow-up; wound check) Additional Instructions: Restart your coumadin today. Do NOT take any additional doses. Wait 1 week before having your INR checked. May shower, no tub baths Wound vac- change every M-W- per home health care No driving while on narcotics May climb stairs - Diet and Activity Activity: increase activity as tolerated Diet: advance to your usual diet - Hospital Course Hospital course: Ms. Block is a 76 year old female seen by Dr. Hall in the outpatient clinic for a RLE hematoma with necrosis. She was admitted to the hospital and taken to the operating room for evacuation of hematoma. Her coumadin therapy was help due to post-operative bleeding. Daily dressing changes have been completed and her post-op bleeding has stopped. We will convert her to a wound vac and plan to restart coumadin therapy today. Her vitals are stable and she is afebrile. Her pain is well controlled. We will begin discharge planning to home with home health care and plan for outpatient f/u with Dr. Hall in the next 10-14 days. - Time Spent with Patient Total time spent providing and/or coordinating discharge services: Less than 30 minutes - Attending Attestation I examined this patient and my medical decision-making was reviewed with the PSYCHIATRIC REGISTERED NURSE/PA/Advanced Practice Nurse/Resident Physician. I agree with the documented findings, disposition and treatment plan as described except to the extent set forth below. <Job Hall - Last Filed: 04/06/16 19:20> General Surgery Exam Initial Vital Signs Temp Pulse Resp BP Pulse Ox 97.9 F 63 16 149/72 97 04/03/16 13:14 04/03/16 13:14 04/03/16 13:14 04/03/16 13:14 04/03/16 13:14 Date of admission: 04/03/16 12:48 Primary care physician: Allison Contreras Consults: 04/05/16 13:39 Consult to Coil Winder [CONS] Stat Reason for SW Consult: discharge planning- needs home wound vac (plan for discharge to home today, may deliver vac to home for home health to place when approved) 04/05/16 17:11 Consult to Occupational Therapy [CONS] Routine Comment: Evaluate, develop and implement POC Consult to Physical Therapy [CONS] Routine Comment: Evaluate, develop and implement POC - Hospital Course Hospital course: Ms. Block is a 76 year old female - Time Spent with Patient Total time spent providing and/or coordinating discharge services: - Attending Attestation Job Hall MD
--- NOTE | 2016-04-06 15:58 | Physician Discharge Referral ---
Home Health/Hosp Referral Info Transfer to: Home Health Attending Provider: Dr. Job Hall Provider in Charge Post Discharge: PCP - Diagnosis (1) Hematoma of right lower extremity Priority: Primary Status: Resolved (2) HTN (hypertension) Priority: Secondary Status: Chronic (3) Paroxysmal a-fib Priority: Secondary Status: Chronic - Respiratory Orders None - Dressing/Wound Care Site: Right lower extremity Type of Dressing/Treatments w/Frequency: Wound vac- cleanse with soap and water, apply wound vac (medium black sponge) and place at 125mmHG continuous suction. Change every M-W- May shower, no tub bath - Diet/Nutrition Diet/Nutrition Orders: Regular - Activity Activity Orders: Up ad manpreet, Ambulate - Services Needed Following services are medically necessary services: Nursing - Transfer Medications Prescriptions: OxyCODONE/APAP 5/325 [Percocet 5/325 MG] 1 each PO Q8HR PRN #21 tablet PRN Reason: Pain Home Medications: Warfarin [Coumadin] 4 mg PO DAILY 06/07/15 [History] Famotidine [Pepcid] 20 mg PO BID #60 tablet 10/20/15 [Rx] Alprazolam [Xanax 0.25 MG Tablet] 0.25 mg PO BID PRN 03/19/16 [History] Ascorbate Calcium/Bioflavonoid [Jenae-C 500 mg Tablet] 500 mg PO DAILY 03/19/16 [History] Aspirin 81 mg PO DAILY 03/19/16 [History] Atenolol [Tenormin] 50 mg PO BID 03/19/16 [History] Cholecalciferol (D-3) [Vitamin D] 1,000 unit PO DAILY 03/19/16 [History] Doxepin [Sinequan] 25 mg PO HS 03/19/16 [History] Garlic [Odor Free Garlic] 1,000 mg PO DAILY 03/19/16 [History] Glucosamn/[place]n/C/Mn/[place] [Cvs Glucosamine Chondroitin Tb] 1 tab PO DAILY 03/19/16 [History] L. Acidophilus/Pectin, [place] [Acidophilus Probiotic Capsule] 1 cap PO DAILY [History] Magnesium Oxide [Magnesium] 250 mg PO BID 03/19/16 [History] Meclizine HCl [Verticalm] 25 mg PO BID PRN 03/19/16 [History] Multivitamin [One Daily Essential] 1 tab PO DAILY 03/19/16 [History] [place]-3/Dha/Epa/Fish Oil [Fish Oil 1,000 mg Softgel] 1,000 mg PO DAILY 03/19/16 [History] Polyethylene Glycol 3350 [MiraLAX] 17 gm PO DAILY 03/19/16 [History] Potassium Gluconate 550 mg PO DAILY 03/19/16 [History] Propafenone HCl 150 mg PO TID 03/19/16 [History] Raloxifene [Evista] 60 mg PO DAILY 03/19/16 [History] Rosuvastatin [Crestor] 20 mg PO DAILY 03/19/16 [History] Vitamin B Complex Vit C No.4 [Super B Complex] 150 mg PO DAILY 03/19/16 [History ] Diltiazem CD (24hr) [Cardizem CD] 120 mg PO DAILY 04/03/16 [History] OxyCODONE/APAP 5/325 [Percocet 5/325 MG] 1 each PO Q8HR PRN #21 tablet 04/06/16 [Rx] Allergies/Adverse Reactions: Allergies No Known Allergies Allergy (Verified 06/07/15 11:49) Certification: Further, I certify that my clinical findings support that this patient is homebound (i.e. absences from home require considerable and taxing effort and are for medical reasons or shinto services or infrequently or short duration when for other reasons) because: Homebound Reason: Patient requires assistance of a person or device to safely leave home, Post-surgery restriction and or conditions limit ability to leave home Attestation: My signature below is to certify that this patient is under my care and that I, or nurse practitioner, or a physician's parts room assistant working with me, has a face-to -face encounter with this patient.
== END 2016-04-06 21:37 | disposition home health service (06) ==
LOC: 3NENU
PROVIDERS: ADMIT Surgery; ATTEND Surgery

== ENCOUNTER 2016-11-09 11:58 | Observation (INO) ==
[2016-11-09] MEDS ORDERED: 0.9 % Sodium Chloride 500 ML IVC ONE (12:58)
--- NOTE | 2016-11-09 13:13 | Emergency Department Note ---
Disposition Clinical Impression: Palpitations, Bradycardia Atrial fibrillation Qualifiers: Atrial fibrillation type: paroxysmal Qualified Code(s): I48.0 - Paroxysmal atrial fibrillation Disposition: Admitted As Inpatient Condition: Good Referrals: NONE,PCP [Non-Partnered Physician] - Forms: ED Satisfaction Letter Time of Disposition: 15:39 Arrhythmia/Palpitations HPI - General Chief Complaint: ED Arrhythmia/Palpitations Stated Complaint: Irregular Heart Beat Time Seen by Provider: 11/09/16 12:23 Source: patient Mode of arrival: ambulatory Limitations: no limitations Nursing Notes Reviewed: Yes Vital Signs Reviewed: Yes - History of Present Illness HPI Narrative: 76-year-old female history of atrial fibrillation presents to the ED for irregular heart rhythm and racing of the heart. She reports intermittent palpitations that started this morning. Last time this occurred was week ago where she was seen here and evaluated. She does report feeling of lightheadedness and weakness. Denies any falls. Denies any shortness of breath , chest pain, abdominal pain. She did take her morning medications which includes rhythmol, Cardizem and atenolol. Her heart rate in the room was in the lower 40s. She took her medication Cardizem at 5 AM and her atenolol 1030, called her at 11 when she started experiencing the irregular heart rhythm. Denies any recent changes to medications. Dr. Jacques her captain airline pilot. Her last INR was 1.9. Denies any recent fever, illness, cough or abdominal pain. Family states she does appear little more pale than usual she denies any bloody stool, black tarry stool or hemoptysis. States she typically has a lower heart rate review of her medical records are heart rate is sometimes as high as 80 and as low as 50. EKG shows atrial fibrillation with a slow ventricular response 56 bits per minute. Patient currently reports palpitations but denies any chest pain or shortness of breath. EKG, chest x-ray , basic labs INR in a fluid bolus ordered. Will reevaluate. Suspect likely medication for the bradycardia and lightheadedness. Pt Subjective Complaint: "heart racing", irregular heart beat - Related Data Home Medications Medication Instructions Recorded Confirmed Warfarin [Coumadin] 4 mg PO MOTUWEFRSA 06/07/15 11/09/16 ALPRAZolam [Xanax 0.25 MG Tablet] 0.25 mg PO BID PRN 03/19/16 11/09/16 Ascorbate Calcium/Bioflavonoid 500 mg PO DAILY 03/19/16 11/09/16 [Jenae-C 500 mg Tablet] Aspirin 81 mg PO DAILY 03/19/16 11/09/16 Atenolol [Tenormin] 50 mg PO BID 03/19/16 11/09/16 Cholecalciferol (D-3) [Vitamin D] 1,000 unit PO DAILY 03/19/16 11/09/16 Doxepin [Sinequan] 25 mg PO HS 03/19/16 11/09/16 Garlic [Odor Free Garlic] 1,000 mg PO DAILY 03/19/16 11/09/16 L. Acidophilus/Pectin, [place] 1 cap PO DAILY 03/19/16 11/09/16 [Acidophilus Probiotic Capsule] Multivitamin [One Daily Essential] 1 tab PO DAILY 03/19/16 11/09/16 [place]-3/Dha/Epa/Fish Oil [Fish Oil 1,000 mg PO DAILY 03/19/16 11/09/16 1,000 mg Softgel] Polyethylene Glycol 3350 [MiraLAX] 17 gm PO DAILY 03/19/16 11/09/16 Potassium Gluconate 550 mg PO DAILY 03/19/16 11/09/16 Propafenone HCl 150 mg PO TID 03/19/16 11/09/16 Rosuvastatin [Crestor] 20 mg PO DAILY 03/19/16 11/09/16 Vitamin B Complex Vit C No.4 150 mg PO DAILY 03/19/16 11/09/16 [Super B Complex] Diltiazem CD (24hr) [Cardizem CD] 120 mg PO DAILY 04/03/16 11/09/16 Alendronate Sodium [Fosamax] 70 mg PO QWEEK 11/09/16 11/09/16 Calcium Carbonate/Vitamin D3 1 each PO DAILY 11/09/16 11/09/16 [Calcium 600-Vit D3 800 Tablet] Omeprazole [PriLOSEC] 20 mg PO DAILY 11/09/16 11/09/16 Warfarin [Coumadin] 2 mg PO SUTH 11/09/16 11/09/16 Allergies Allergy/AdvReac Type Severity Reaction Status Date / Time No Known Allergies Allergy Verified 11/09/16 12:04 All systems ED: reviewed and negative except as stated. Review of Systems: As Per HPI Constitutional: Denies: fever, chills Cardiovascular: Reports: palpitations. Denies: chest pain, dyspnea on exertion , syncope Respiratory: Denies: cough, dyspnea Gastrointestinal: Denies: abdominal pain, nausea, vomiting Genitourinary: Denies: urgency, dysuria Musculoskeletal: Denies: back pain, neck pain Integumentary: Denies: rash, lesions Neurological: Denies: headache Past Medical History - Past Medical History Attestation: Yes The following information was validated with the patient. Source: patient Medical history: Reports: atrial fibrillation, GERD, hyperlipidemia, hypertension, valvular heart disease Surgical history: Reports: non-contributory Psychiatric history: Reports: anxiety PRODUCT SAFETY HEAD history: Reports: no PRODUCT SAFETY HEAD history - Social History Smoking Status: Never smoker Smokeless Tobacco Status: No Alcohol use: Reports: none Drug use: Reports: none Physical Exam - General Limitations: no limitations General appearance: alert, in no apparent distress - Head Head exam: atraumatic, normocephalic, normal inspection - Eye Eye exam: Present: normal appearance, PERRL, EOMI. Absent: scleral icterus - ENT ENT exam: normal exam, normal oropharynx - Neck Neck exam: Present: normal inspection, full ROM - Chest Chest inspection: Present: normal inspection, symmetric chest wall rise. Absent : tenderness - Respiratory Respiratory exam: Present: normal lung sounds bilaterally. Absent: respiratory distress, wheezes - Cardiovascular Cardiovascular exam: Present: bradycardia, irregular rhythm, normal heart sounds - Abdominal Exam Abdominal exam: Present: soft, Non-Tender, normal bowel sounds. Absent: tenderness, distention, guarding, rebound, rigidity - Extremities Exam Extremities exam: Present: normal inspection, full ROM, normal capillary refill. Absent: pedal edema, calf tenderness - Neurological Exam Neurological exam: Present: alert, oriented X3, CN II-XII intact, normal gait - Expanded Neurological Exam Patient oriented to: Present: person, place, time Speech: Present: fluid speech Cranial nerves: EOM function (II, III, IV, ): Normal, facial sensation (V): Normal, facial palsy (VII): Normal, gag reflex (IX): Normal, spinal accessory function (XI): Normal, tongue deviation (XII): Normal Cerebellar function: normal gait Motor strength - LUE: 5/5 Motor strength - RUE: 5/5 Motor strength - LLE: 5/5 Motor strength - RLE: 5/5 - Skin Skin exam: Present: warm, dry, intact, pallor Course - Reevaluation(s) Reevaluation #1: Patient has borderline hypotensive systolic 100. She continues to be bradycardic in and atrial fibrillation rate of 40s. She does report palpitations but denies any chest pain, shortness of breath or lightheadedness. Patient was given fluids and reports some mild improvement. Review for labs or otherwise unremarkable. Her INR is therapeutic 2.7. No elevation of her creatinine, no anemia. Given her history of atrial fibrillation on rhythm all will consult with cardiology for further recommendations and management. Disposition pending consultation, likely admission. Time: 15:10 Reevaluation #2: Patient's blood pressure has improved to 127/62. She does appear to have maybe have converted to sinus rhythm 58 bpm. I do recommend that she continues to be admitted for observation in consideration of medication adjustment. Time: 15:39 - Consultations Consultation #1: Spoke with captain airline pilot Dr. Newberry, agrees that given patient's symptoms of palpitation and atrial fibrillation will need admission for medication adjustment and possible cardioversion. Time: 15:18 Consultation #2: Spoke with on-call hospitalist Dr. Reynoso, jesus to admit for atrial fibrillation on rhythmol, bradycardia, palpitations. No further orders at this time Time: 15:26 Consultation #3: Cardiology at bedside to evaluate, agrees that patient appears to have converted to sinus rhythm. Agree patient would benefit from hospitalization with medication adjustment of cardizem and rhythmol. Repeat EKG ordered. Time: 15:56 Vital Signs Temperature 97.5 F L 11/09/16 12:00 Pulse Rate 49 11/09/16 12:00 Respiratory Rate 18 11/09/16 12:00 Blood Pressure 101/64 11/09/16 12:00 O2 Sat by Pulse Oximetry 92 11/09/16 12:00 Temperature 97.5 F L 11/09/16 12:00 Pulse Rate 65 11/09/16 16:01 Respiratory Rate 18 11/09/16 16:01 Blood Pressure 135/71 11/09/16 16:01 O2 Sat by Pulse Oximetry 96 11/09/16 16:01 Oxygen Delivery Oxygen Delivery Room Air Arrhythmia/Palpitations - Medical Records Medical records reviewed: Yes I reviewed the patient's medical records. - Lab Data Lab results reviewed: Yes I reviewed the patient's lab results. Result diagrams: 11/09/16 13:08 11/09/16 13:08 Lab Results 11/09/16 11/09/16 11/09/16 Range/Units 13:08 13:08 13:08 WBC 8.7 (4.3-11.1) K/mcL RBC 4.77 (3.82-4.97) M/mcL Hgb 13.9 (11.5-15.4) g/dL Hct 41.4 (35.3-44.9) % MCV 86.8 (83.0-100.0) fL MCH 29.1 (28.0-33.3) pg MCHC 33.6 (31.6-35.5) g/dL RDW 13.5 (11.5-14.5) % Plt Count 197 (140-400) K/mcL MPV 10.6 (9.4-12.4) fL Immature Gran % 0.3 (0-4) % Seg Neutrophils % 72.8 % Lymphocytes % 16.8 % Monocytes % 9.7 % Eosinophils % 0.3 % Basophils % 0.1 % Neutrophils # 6.3 (1.6-8.9) K/mcL Lymphocytes # 1.5 (0.6-4.6) K/mcL Monocytes # 0.8 (0.0-1.3) K/mcL Eosinophils # 0.0 (0.0-0.6) K/mcL Basophils # 0.0 (0.0-0.2) K/mcL PT 30.3 H (9.4-12.1) Seconds INR 2.7 Sodium 130 L (136-145) mEq/L Potassium 4.5 (3.5-4.5) mEq/L Chloride 100 (98-109) mEq/L Carbon Dioxide 22 (19-29) mEq/L BUN 11 (7-20) mg/dL Creatinine 0.71 (0.57-1.11) mg/dL Est GFR ( Amer) > 60 (> 60) Est GFR (Non-Af Amer) > 60 (> 60) BUN/Creatinine Ratio 15 (6-26) Glucose 124 H (70-99) mg/dL Calculated Osmolality 271 L (280-300) Calcium 9.1 (8.6-10.8) mg/dL Troponin I (0-0.03) ng/mL TSH 2.498 (0.350-4.840) mcIU/mL 11/09/16 Range/Units 13:08 WBC (4.3-11.1) K/mcL RBC (3.82-4.97) M/mcL Hgb (11.5-15.4) g/dL Hct (35.3-44.9) % MCV (83.0-100.0) fL MCH (28.0-33.3) pg MCHC (31.6-35.5) g/dL RDW (11.5-14.5) % Plt Count (140-400) K/mcL MPV (9.4-12.4) fL Immature Gran % (0-4) % Seg Neutrophils % % Lymphocytes % % Monocytes % % Eosinophils % % Basophils % % Neutrophils # (1.6-8.9) K/mcL Lymphocytes # (0.6-4.6) K/mcL Monocytes # (0.0-1.3) K/mcL Eosinophils # (0.0-0.6) K/mcL Basophils # (0.0-0.2) K/mcL PT (9.4-12.1) Seconds INR Sodium (136-145) mEq/L Potassium (3.5-4.5) mEq/L Chloride (98-109) mEq/L Carbon Dioxide (19-29) mEq/L BUN (7-20) mg/dL Creatinine (0.57-1.11) mg/dL Est GFR ( Amer) (> 60) Est GFR (Non-Af Amer) (> 60) BUN/Creatinine Ratio (6-26) Glucose (70-99) mg/dL Calculated Osmolality (280-300) Calcium (8.6-10.8) mg/dL Troponin I 0.00 (0-0.03) ng/mL TSH (0.350-4.840) mcIU/mL - Radiology Data Radiology results reviewed: Yes I reviewed the patient's radiology results. Chest X-Ray 11/09/16 12:56 IMPRESSION: No acute process. D/ / Kavon Cortes MD / Kavon Cortes MD Interpreting Provider: Kavon Cortes MD - EKG Data EKG attestation: Yes I reviewed and interpreted this EKG. EKG results narrative: EKG performed 1202 atrial fibrillation with slow ventricular response 56 bpm QRS 110, no ST elevations or depression, poor R-R wave progression. Compared to prior EKG performed 11/01/2016 shows normal sinus rhythm with a first-degree AV block 62 bpm, NV interval 250. She has had a history of atrial fibrillation with rapid ventricular response on old EKG performed 01/06/2014. No acute ischemic changes. Attestation Statement - Attestation Attestation: I examined this patient and my medical decision-making was reviewed with the Resident Physician. I agree with the documented findings, disposition and treatment plan as described except to the extent set forth below. Paroxysmal atrial fibrillation, presents with near-syncope and heart rate in the 30s and 40s. Blood pressure is range between 98-122 systolic. She has been a symptomatically lying in bed in the emergency department. While calling to have the patient minutes the hospitalist, she converted to sinus rhythm with a rate of 60. Lab work was unremarkable. Medication adjustment will be required. INR is therapeutic at 2.7.
[2016-11-09 13:20] LABS: Basophils % 0.1 %; Eosinophils % 0.3 %; Hematocrit 41.4 % (35.3-44.9); Hemoglobin 13.9 g/dL (11.5-15.4); Immature Granulocytes % 0.3 % (0-4); Lymphocytes # 1.5 K/mcL (0.6-4.6); Lymphocytes % 16.8 %; Mean Corpuscular HGB Conc 33.6 g/dL (31.6-35.5); Mean Corpuscular Hemoglobin 29.1 pg (28.0-33.3); Mean Corpuscular Volume 86.8 fL (83.0-100.0); Mean Platelet Volume 10.6 fL (9.4-12.4); Monocytes # 0.8 K/mcL (0.0-1.3); Monocytes % 9.7 %; Neutrophils # 6.3 K/mcL (1.6-8.9); Platelet Count 197 K/mcL (140-400); Red Blood Count 4.77 M/mcL (3.82-4.97); Red Cell Distribution Width 13.5 % (11.5-14.5); Segmented Neutrophils % 72.8 %
[2016-11-09 13:27] LABS: INR 2.7; Prothrombin Time 30.3 Seconds (9.4-12.1)
[2016-11-09 13:33] LABS: BUN/Creatinine Ratio 15 (6-26); Blood Urea Nitrogen 11 mg/dL (7-20); Calcium 9.1 mg/dL (8.6-10.8); Carbon Dioxide 22 mEq/L (19-29); Chloride 100 mEq/L (98-109); Glucose 124 mg/dL (70-99); Osmolality,Calculated 271 (280-300); Potassium 4.5 mEq/L (3.5-4.5); Sodium 130 mEq/L (136-145); eGFR For African Americans > 60 (> 60); eGFR For Non-African Americans > 60 (> 60)
[2016-11-09 13:55] LABS: Thyroid Stimulating Hormone 2.498 mcIU/mL (0.350-4.840)
--- NOTE | 2016-11-09 16:12 | Cardiology Consult Note ---
<Esther Machado - Last Filed: 11/09/16 16:36> Date of Encounter: 11/09/16 Time of Encounter: 15:45 Assessment and Plan (1) PAF (paroxysmal atrial fibrillation) Current Visit: Yes Status: Acute Hx of PAF, diagnosed 2-3 years ago; has maintained SR on Rythmol, CCB, and BB. Anticoagulated on Coumadin, INR followed by [facility]. Reports palpitations, racing heart, and irregular heart beats for the past 2-3 weeks. ECG upon arrival to ED showed AF, HR 58. During exam, patient in NSR. Obtained ECG to confirm: HR 60 SR QRS 93. Discussed with Dr. Newberry; recommend increasing Rythmol to 225 mg W9H--kmbmc dose this evening. Will require inpatient monitoring for at least 5 doses. Kidney function normal. Obtain daily ECG's to monitor QRS. Given bradycardia and hypotension, recommend stopping cardizem for now. Will decrease Atenolol to 25 mg BID. Monitor HR/telemetry and BP closely. Continue Coumadin, INR 2.7. Goal INR 2-3. If she would require CV, will need BRENDA prior to given subtherapeutic INR on 11/06/16. (2) Hypotension Current Visit: Yes Status: Acute Improved after IV fluid bolus. Will stop cardizem, decrease home BB dose. Continue to monitor closely. Discussion w patient/family: The assessment and plan as outlined above was discussed with the patient and/or family members who expressed understanding and agreement. All questions were answered. Thank you for involving us in the care of your patient. Please call with any questions. The patient was discussed and reviewed with Dr. Newberry who agrees with plan as stated above. History of Present Illness Consult date: 11/09/16 Requesting physician: Nilson Jordan Consult reason: AFib Chief complaint: Palpitations, racing heart History of present illness: Ms. Block is a 76 year old female with PMHx significant for PAF (Coumadin), HTN , and HLD who presented to the ED with 2 week history of palpitations and racing heart beat. She reports symptoms worsened this AM which prompted ED admission. She reports compliance with medications. Recently started on medication for osteoporosis and omeprazole. Of note, she reports worsening abdominal discomfort/gas over the past 3 weeks. Upon arrival she was found to be in atrial fibrillation with controlled rate. Recent ED evaluation a few weeks ago with similar symptoms, patient was in SR by discharged from ED. Started on Rythmol 2 years ago for rhythm control, follows with Dr. Jacques. Prior CV testing: TTE 12/14/15: LVEF 60%, moderate LVDD, moderate eccentric AR, mild-moderate MR , normal wall motion Stress echocardiogram 12/01/15: stress ECG negative for ischemia, good exercise capacity, negative stress ECG/echo for ischemia. Past Med Surg Social Fam HX - Past Medical History Attestation: Yes The following information was validated with the patient. Source: patient, obtained from family Medical history: atrial fibrillation, GERD, hyperlipidemia, hypertension, valvular heart disease Psychiatric history: anxiety - Past Surgical History Surgical History: non-contributory - Social History Smoking Status: Never smoker Smokeless Tobacco Status: No Alcohol use: none Drug use: none Medications and Allergies Warfarin [Coumadin] 4 mg PO MOTUWEFRSA 06/07/15 [History] ALPRAZolam [Xanax 0.25 MG Tablet] 0.25 mg PO BID PRN 03/19/16 [History] Ascorbate Calcium/Bioflavonoid [Jenae-C 500 mg Tablet] 500 mg PO DAILY 03/19/16 [History] Aspirin 81 mg PO DAILY 03/19/16 [History] Atenolol [Tenormin] 50 mg PO BID 03/19/16 [History] Cholecalciferol (D-3) [Vitamin D] 1,000 unit PO DAILY 03/19/16 [History] Doxepin [Sinequan] 25 mg PO HS 03/19/16 [History] Garlic [Odor Free Garlic] 1,000 mg PO DAILY 03/19/16 [History] L. Acidophilus/Pectin, [place] [Acidophilus Probiotic Capsule] 1 cap PO DAILY [History] Multivitamin [One Daily Essential] 1 tab PO DAILY 03/19/16 [History] [place]-3/Dha/Epa/Fish Oil [Fish Oil 1,000 mg Softgel] 1,000 mg PO DAILY 03/19/16 [History] Polyethylene Glycol 3350 [MiraLAX] 17 gm PO DAILY 03/19/16 [History] Potassium Gluconate 550 mg PO DAILY 03/19/16 [History] Propafenone HCl 150 mg PO TID 03/19/16 [History] Rosuvastatin [Crestor] 20 mg PO DAILY 03/19/16 [History] Vitamin B Complex Vit C No.4 [Super B Complex] 150 mg PO DAILY 03/19/16 [History ] Diltiazem CD (24hr) [Cardizem CD] 120 mg PO DAILY 04/03/16 [History] Alendronate Sodium [Fosamax] 70 mg PO QWEEK 11/09/16 [History] Calcium Carbonate/Vitamin D3 [Calcium 600-Vit D3 800 Tablet] 1 each PO DAILY 02/15 [History] Omeprazole [PriLOSEC] 20 mg PO DAILY 11/09/16 [History] Warfarin [Coumadin] 2 mg PO SUTH 11/09/16 [History] Allergies No Known Allergies Allergy (Verified 11/09/16 12:04) All Systems Review: A 10-system review of systems was performed and is negative for pertinent findings except as documented above in the HPI. - Cardiovascular Cardiovascular: as per HPI Physical Examination Vital Signs, Last 4 Hours Pulse Resp BP Pulse Ox 11/09/16 16:01 65 18 135/71 96 11/09/16 14:50 36 18 97/64 95 General: Conversant, No Apparent Distress HEENT: Atraumatic, Normocephaly, Mucus Membranes Moist Neck: No JVD, Normal carotid pulses Cardiac: Reg Rate and Rhythm, Normal S1 and S2, Other (2/6 murmur LSB) Lungs: Normal Breath Sounds, No Wheeze, Rales, Rhonchi Neuro: Alert and responsive, No focal deficits noted Abdomen: Soft, Non-Tender Skin: No rashes noted on visualized skin Musculoskeletal: No Chest Wall Tenderness Extremities: No Clubbing, No Cyanosis, No Edema, Normal Pulses Results 11/09/16 13:08 11/09/16 13:08 Lab Results 11/09/16 11/09/16 11/09/16 13:08 13:08 13:08 WBC 8.7 Hgb 13.9 Hct 41.4 Plt Count 197 INR 2.7 Sodium 130 L Potassium 4.5 Chloride 100 Carbon Dioxide 22 BUN 11 Creatinine 0.71 Glucose 124 H Calcium 9.1 Troponin I TSH 2.498 11/09/16 13:08 WBC Hgb Hct Plt Count INR Sodium Potassium Chloride Carbon Dioxide BUN Creatinine Glucose Calcium Troponin I 0.00 TSH - Imaging and Cardiology Chest Xray: report reviewed Stress Test: report reviewed Echo: report reviewed - EKG Interpretation EKG results cardiology: personally reviewed Consult Discharge Plan - Plan Referrals: Diya Donahue CNP [Primary Care Provider] - <Eliana Newberry - Last Filed: 11/10/16 09:46> Date of Encounter: 11/10/16 Assessment and Plan Discussion w patient/family: The assessment and plan as outlined above was discussed with the patient and/or family members who expressed understanding and agreement. All questions were answered. Thank you for involving us in the care of your patient. Please call with any questions. History of Present Illness History of present illness: Ms. Block is a 76 year old female All Systems Review: A 10-system review of systems was performed and is negative for pertinent findings except as documented above in the HPI. Physical Examination Vital Signs, Last 4 Hours Temp Pulse Resp BP Pulse Ox 11/10/16 07:18 97.5 F L 58 18 101/65 94 Results 11/10/16 05:33 11/10/16 05:33 Lab Results 11/10/16 11/10/16 11/10/16 05:33 05:33 05:33 WBC 4.4 Hgb 12.5 Hct 37.9 Plt Count 152 INR 2.9 APTT 39.4 H Sodium 139 D Potassium 3.4 L D Chloride 108 Carbon Dioxide 26 BUN 8 Creatinine 0.67 Glucose 82 Calcium 8.2 L - Attending Attestation I examined this patient and my medical decision-making was reviewed with the Resident Physician. I agree with the documented findings, disposition and treatment plan. Ms. Block presents with AFIB while on rhythmol. She's had a few episodes of palpitations. We have recommended increasing rhythmol and will stop cardizem and lower atenolol. She is anticoagulated on coumadin. Patient agrees with the plan.
[2016-11-09] MEDS ORDERED: Naloxone 0.4 MG/ML INJ IVP PRN (16:29)
[2016-11-09] MEDS ORDERED: Acetaminophen 325 MG TABLET PO PRN (16:29)
[2016-11-09] MEDS ORDERED: Mag Hydrox/Al Hydrox/Simeth 30 ML UDC PO PRN (16:29)
[2016-11-09] MEDS ORDERED: ALPRAZolam 0.25 MG TABLET PO PRN (16:30)
--- NOTE | 2016-11-09 16:37 | Internal Med History&Physical ---
<Joan Sierra M - Last Filed: 11/09/16 23:12> Date of Encounter: 11/09/16 Time of Encounter: 16:35 Assessment and Plan (1) Palpitations Current visit: Yes Status: Acute Patient presented with palpitations. She was found to be in afib with slow ventricular response, HR 30s-50s. She was given fluids and she converted to NSR with HR in the 60s. Cardiology consulted and is making adjustments to her medications Continuous quality assurance monitor. (2) Bradycardia Current visit: Yes Status: Acute She converted to NSR after fluids and HR now in the 60s. Cardiology consulted. Continuous quality assurance monitor. (3) PAF (paroxysmal atrial fibrillation) Current visit: Yes Status: Acute Patient with paroxysmal atrial fibrillation on atenolol, diltiazem and rhythmol for rate and rhythm control and coumadin for anticoagulation. Patient found to be in afib with slow ventricular response today. Cardiology consulted and making adjustments to medications. INR was therapeutic. Continue home dose of coumadin and recheck PT/INR with morning labs. (4) Hypotension Current visit: Yes Status: Acute Patient was hypotensive with systolic in 90s. After fluids, patient's blood pressure improved to 135/71. Cardiology is consulted and making adjustments to medications. Continue to monitor. Qualifiers: Hypotension type: hypotension due to drug Qualified Code(s): I95.2 - Hypotension due to drugs (5) DVT prophylaxis Current visit: Yes Status: Acute anti-embolic stockings Patient on coumadin for afib, additional pharmacologic prophylaxis not warranted. Internal Medicine - H&P: HPI Chief complaint: palpitations Admitted From: Emergency Dept Plans for Post Hospital Care: Home History of present illness: Ms. Block is a 76 year old female with hypertension, hyperlipidemia, anxiety, atrial fibrillation, GERD presented to the emergency department today with complaints of palpitations, weakness, and lightheadedness. Patient reports that this morning she felt like she was having palpitations and checked her pulse and it seemed to slow she reports during this time she also felt a little bit weak and lightheaded. She denies any headache, chest pain, shortness of breath, nausea, vomiting, abdominal pain, fever, chills or sweats. Patient has a diagnosis of atrial fibrillation and is on diltiazem, atenolol, Rythmol, rate and rhythm control as well as Coumadin for anticoagulation. Evaluation in emergency department revealed patient was bradycardic with heart rate ranging from the 30s to 50s. EKG showed A. fib with slow ventricular response her INR was therapeutic at 2.7. Troponin was negative at 0.00. TSH was within normal limits. Chest x-ray showed no acute process. Patient was also noted to be hypotensive with blood pressures in the 90s systolic. She was given 2 L of fluids and her blood pressure and heart rate improved, and she converted to sinus rhythm. Cardiology was consulted and evaluated patient at the bedside recommended observation and they will make adjustments to her medications. On exam, patient alert and oriented, in no acute distress. Heart is regular rate and rhythm at this time. Lungs are clear bilaterally to auscultation. No peripheral edema, peripheral pulses intact. Past Med Surg Social Fam HX - Past Medical History Medical history: atrial fibrillation, GERD, hyperlipidemia, hypertension, valvular heart disease Psychiatric history: anxiety - Past Surgical History Surgical History: non-contributory - Social History Smoking Status: Never smoker Smokeless Tobacco Status: No Alcohol use: none Drug use: none - Family History Father Living Status: Hx Family Cardiac Disorders: Yes Mother Living Status: Hx Family Cardiac Disorders: Yes Sister Hx Family Cancer: Yes Internal Medicine - H&P: Meds Warfarin [Coumadin] 4 mg PO [id number] 06/07/15 [History] ALPRAZolam [Xanax 0.25 MG Tablet] 0.25 mg PO BID PRN 03/19/16 [History] Ascorbate Calcium/Bioflavonoid [Jenae-C 500 mg Tablet] 500 mg PO DAILY 03/19/16 [History] Aspirin 81 mg PO DAILY 03/19/16 [History] Atenolol [Tenormin] 50 mg PO BID 03/19/16 [History] Cholecalciferol (D-3) [Vitamin D] 1,000 unit PO DAILY 03/19/16 [History] Doxepin [Sinequan] 25 mg PO HS 03/19/16 [History] Garlic [Odor Free Garlic] 1,000 mg PO DAILY 03/19/16 [History] L. Acidophilus/Pectin, Harrison [Acidophilus Probiotic Capsule] 1 cap PO DAILY [History] Multivitamin [One Daily Essential] 1 tab PO DAILY 03/19/16 [History] Triangle-3/Dha/Epa/Fish Oil [Fish Oil 1,000 mg Softgel] 1,000 mg PO DAILY 03/19/16 [History] Polyethylene Glycol 3350 [MiraLAX] 17 gm PO DAILY 03/19/16 [History] Potassium Gluconate 550 mg PO DAILY 03/19/16 [History] Propafenone HCl 150 mg PO TID 03/19/16 [History] Rosuvastatin [Crestor] 20 mg PO DAILY 03/19/16 [History] Vitamin B Complex Vit C No.4 [Super B Complex] 150 mg PO DAILY 03/19/16 [History ] Diltiazem CD (24hr) [Cardizem CD] 120 mg PO DAILY 04/03/16 [History] Alendronate Sodium [Fosamax] 70 mg PO QWEEK 11/09/16 [History] Calcium Carbonate/Vitamin D3 [Calcium 600-Vit D3 800 Tablet] 1 each PO DAILY 02/15 [History] Omeprazole [PriLOSEC] 20 mg PO DAILY 11/09/16 [History] Warfarin [Coumadin] 2 mg PO SUTH 11/09/16 [History] Allergies No Known Allergies Allergy (Verified 11/09/16 12:04) All Systems PM: A 10-system review of systems was performed and is negative for pertinent findings except as documented above in the HPI. - Constitutional Constitutional: weakness, no chills, no fever(s), no night sweats - EENT Eyes: no change in vision, no discharge, no pain, no photophobia Ears: no ear discharge, no ear pain, no tinnitus Nose, mouth and throat: no dysphagia, no nasal discharge, no neck pain, no sore throat - Cardiovascular Cardiovascular ROS IM: lightheadedness, palpitations, no chest pain, no diaphoresis, no dyspnea, no syncope - Respiratory Respiratory: no cough, no dyspnea, no wheezing, no excessive phlegm production - Gastrointestinal Gastrointestinal: no abdominal pain, no diarrhea, no hematemesis, no hematochezia, no melena, no nausea, no vomiting - Genitourinary Genitourinary: no change in urinary stream, no dysuria, no flank pain, no hematuria - Musculoskeletal Musculoskeletal ROS IM: no numbness, no tingling - Integumentary Integumentary IM: no rash, no unusual bruising - Neurological Neurological ROS: no confusion, no convulsions, no focal weakness, no numbness, no tingling, no tremor(s) - Hematologic/Lymphatic Hematologic/Lymphatic: no easy bruising - Constitutional Vitals: Temp Pulse Resp BP Pulse Ox 97.5 F L 65 18 135/71 96 11/09/16 12:00 11/09/16 16:01 11/09/16 16:01 11/09/16 16:01 11/09/16 16:01 General appearance: Present: A&O X 3, pleasant, no acute distress - Head Head exam: Present: atraumatic, normocephalic - Eye Eye exam: Present: PERRL, conjuntiva pink, sclera anicteric Pupils: Present: PERRL - Neck Neck exam general surgery: Present: supple, trachea midline. Absent: lymphadenopathy - Respiratory Respiratory exam: Present: CTAB. Absent: accessory muscle use, rales, rhonchi, wheezes - Cardiovascular Cardiovascular exam: Present: RRR, +S1, +S2, systolic murmur. Absent: diastolic murmur, gallop, rubs - GI/Abdominal GI/Abdominal exam: Present: normal bowel sounds, soft, no peritoneal signs. Absent: distended, tenderness - Extremities Exam Extremities exam: Present: warm, radial pulses palpable and symmetrical. Absent : calf tenderness, cyanotic, pedal edema - Neurological Exam Neurological exam: Present: CN II-XII intact, oriented X3, no focal deficits. Absent: facial droop, speech deficit - Skin Skin exam: Present: dry, intact Internal Med - H&P Results - Labs CBC & Chem 7: 11/09/16 13:08 11/09/16 13:08 Labs: All Lab Results (24 Hours) 11/09/16 11/09/16 11/09/16 Range/Units 13:08 13:08 13:08 WBC 8.7 (4.3-11.1) K/mcL RBC 4.77 (3.82-4.97) M/mcL Hgb 13.9 (11.5-15.4) g/dL Hct 41.4 (35.3-44.9) % MCV 86.8 (83.0-100.0) fL MCH 29.1 (28.0-33.3) pg MCHC 33.6 (31.6-35.5) g/dL RDW 13.5 (11.5-14.5) % Plt Count 197 (140-400) K/mcL MPV 10.6 (9.4-12.4) fL Immature Gran % 0.3 (0-4) % Seg Neutrophils % 72.8 % Lymphocytes % 16.8 % Monocytes % 9.7 % Eosinophils % 0.3 % Basophils % 0.1 % Neutrophils # 6.3 (1.6-8.9) K/mcL Lymphocytes # 1.5 (0.6-4.6) K/mcL Monocytes # 0.8 (0.0-1.3) K/mcL Eosinophils # 0.0 (0.0-0.6) K/mcL Basophils # 0.0 (0.0-0.2) K/mcL PT 30.3 H (9.4-12.1) Seconds INR 2.7 Sodium 130 L (136-145) mEq/L Potassium 4.5 (3.5-4.5) mEq/L Chloride 100 (98-109) mEq/L Carbon Dioxide 22 (19-29) mEq/L BUN 11 (7-20) mg/dL Creatinine 0.71 (0.57-1.11) mg/dL Est GFR ( Amer) > 60 (> 60) Est GFR (Non-Af Amer) > 60 (> 60) BUN/Creatinine Ratio 15 (6-26) Glucose 124 H (70-99) mg/dL Calculated Osmolality 271 L (280-300) Calcium 9.1 (8.6-10.8) mg/dL Troponin I (0-0.03) ng/mL TSH 2.498 (0.350-4.840) mcIU/mL 11/09/16 Range/Units 13:08 WBC (4.3-11.1) K/mcL RBC (3.82-4.97) M/mcL Hgb (11.5-15.4) g/dL Hct (35.3-44.9) % MCV (83.0-100.0) fL MCH (28.0-33.3) pg MCHC (31.6-35.5) g/dL RDW (11.5-14.5) % Plt Count (140-400) K/mcL MPV (9.4-12.4) fL Immature Gran % (0-4) % Seg Neutrophils % % Lymphocytes % % Monocytes % % Eosinophils % % Basophils % % Neutrophils # (1.6-8.9) K/mcL Lymphocytes # (0.6-4.6) K/mcL Monocytes # (0.0-1.3) K/mcL Eosinophils # (0.0-0.6) K/mcL Basophils # (0.0-0.2) K/mcL PT (9.4-12.1) Seconds INR Sodium (136-145) mEq/L Potassium (3.5-4.5) mEq/L Chloride (98-109) mEq/L Carbon Dioxide (19-29) mEq/L BUN (7-20) mg/dL Creatinine (0.57-1.11) mg/dL Est GFR ( Amer) (> 60) Est GFR (Non-Af Amer) (> 60) BUN/Creatinine Ratio (6-26) Glucose (70-99) mg/dL Calculated Osmolality (280-300) Calcium (8.6-10.8) mg/dL Troponin I 0.00 (0-0.03) ng/mL TSH (0.350-4.840) mcIU/mL - Impressions ITS Impressions Chest X-Ray 11/09/16 12:56 IMPRESSION: No acute process. D/ / Kavon Cortes MD / Kavon Cortes MD Interpreting Provider: Kavon Cortes MD - Diagnostic Studies Chest x-ray Additional comments: Chest X-Ray 11/09/16 12:56 IMPRESSION: No acute process. D/ / Kavon Cortes MD / Kavon Cortes MD Interpreting Provider: Kavon Cortes MD <Isidoro Reynoso - Last Filed: 11/10/16 18:10> Date of Encounter: 11/10/16 Internal Medicine - H&P: HPI History of present illness: Ms. Block is a 76 year old female All Systems PM: A 10-system review of systems was performed and is negative for pertinent findings except as documented above in the HPI. - Constitutional Vitals: Temp Pulse Resp BP Pulse Ox 97.3 F L 59 17 147/78 98 11/10/16 16:01 11/10/16 16:01 11/10/16 16:01 11/10/16 16:01 11/10/16 16:01 Internal Med - H&P Results - Labs CBC & Chem 7: 11/10/16 05:33 11/10/16 05:33 Labs: Short CBC 11/10/16 Range/Units 05:33 WBC 4.4 (4.3-11.1) K/mcL Hgb 12.5 (11.5-15.4) g/dL Hct 37.9 (35.3-44.9) % Plt Count 152 (140-400) K/mcL Neutrophils # 2.7 (1.6-8.9) K/mcL BMP 11/10/16 05:33 Sodium 139 D Potassium 3.4 L D Chloride 108 Carbon Dioxide 26 BUN 8 Creatinine 0.67 Glucose 82 Calcium 8.2 L - Attending Attestation I examined this patient and my medical decision-making was reviewed with the REFRIGERATOR TESTER.. I agree with the documented findings, disposition and treatment plan as described .
[2016-11-09] MEDS: 0.9 % Sodium Chloride 1,000 ML IVC SCH (17:37)
[2016-11-09] MEDS: *HR* Warfarin 4 MG TABLET PO SCH (18:06)
[2016-11-10] MEDS: 0.9 % Sodium Chloride 1,000 ML IVC SCH ×2 (05:15→08:24)
[2016-11-10 06:30] LABS: Basophils % 0.2 %; Eosinophils % 0.9 %; Hematocrit 37.9 % (35.3-44.9); Hemoglobin 12.5 g/dL (11.5-15.4); Immature Granulocytes % 0.2 % (0-4); Lymphocytes # 1.1 K/mcL (0.6-4.6); Lymphocytes % 25.3 %; Mean Corpuscular Hemoglobin 29.1 pg (28.0-33.3); Mean Corpuscular Volume 88.3 fL (83.0-100.0); Monocytes # 0.5 K/mcL (0.0-1.3); Monocytes % 10.3 %; Neutrophils # 2.7 K/mcL (1.6-8.9); Platelet Count 152 K/mcL (140-400); Red Blood Count 4.29 M/mcL (3.82-4.97); Red Cell Distribution Width 13.8 % (11.5-14.5); Segmented Neutrophils % 63.1 %
[2016-11-10 06:33] LABS: INR 2.9; Prothrombin Time 31.8 Seconds (9.4-12.1)
[2016-11-10 06:36] LABS: Activated Partial Thrombo Time 39.4 Seconds (26.0-36.0)
[2016-11-10 06:50] LABS: BUN/Creatinine Ratio 12 (6-26); Blood Urea Nitrogen 8 mg/dL (7-20); Calcium 8.2 mg/dL (8.6-10.8); Carbon Dioxide 26 mEq/L (19-29); Chloride 108 mEq/L (98-109); Glucose 82 mg/dL (70-99); Osmolality,Calculated 285 (280-300); eGFR For African Americans > 60 (> 60); eGFR For Non-African Americans > 60 (> 60)
[2016-11-10 06:53] LABS: Potassium 3.4 mEq/L (3.5-4.5); Sodium 139 mEq/L (136-145)
[2016-11-10] MEDS: Lactobacillus 1 EACH CAP.SPRINK PO SCH (08:24)
[2016-11-10] MEDS: Aspirin 81 MG TAB.CHEW PO SCH (08:24)
--- NOTE | 2016-11-10 09:22 | Internal Med Progress Note ---
<John Treviño - Last Filed: 11/10/16 10:51> Date of Encounter: 11/10/16 Time of Encounter: 09:22 - Assessment and plan (1) PAF (paroxysmal atrial fibrillation) Current Visit: Yes Status: Acute Assessment and plan: 2 week hx of palpitations + heart racing. progressed on day of admission with palpitations, weakness, and lightheadness. Known hx of afib which is controlled by diltiazem, atenolol, rhythmol and anticoagulated with coumadin INR 2.7. During admission HR 30-50 and hypotensive, was then given 2 L fluids and BP and HR improved. - monitor BP and HR, tele - per cards, continue to hold diltiazem and lower dose of atenolol 25 mg BID due to low HR and BP - day 2 of 5 of observation for rhythmol dosing increase to 225mg. - daily ekg to monitor for QRS - continue coumadin INR 2.7, goal 2-3 (2) Hypotension Current Visit: Yes Status: Acute Assessment and plan: improved after fluid bolus. per cards, cardizem held, and home bb lowered. - continue to closely monitor BP Qualifiers: Hypotension type: hypotension due to drug Qualified Code(s): I95.2 - Hypotension due to drugs (3) DVT prophylaxis Current Visit: Yes Status: Acute Assessment and plan: continue Coumadin, no additional pharm prophylaxis at this time - anti-embolic stockings (4) Bradycardia Current Visit: Yes Status: Acute Assessment and plan: HR 30's in Ed, responded to 2L bolus of IV fluids - continue to closely monitor HR. - Subjective Interval history: Ms Blcok is a 76 yo F who presented to ED with c/o palpitations, weakness and lightheadness with hx: HTN, HLD, anxiety, afib, and GERD. Patient has had heart racing and palpitations for 2 weeks which worsened on day of admission. patient reports that she was asymptomatic overnight and denies COX, CP, SOB, N/V , abd pain, F, C, diaphoresis. - Constitutional Vitals: Temp Pulse Resp BP Pulse Ox 97.5 F L 58 18 101/65 94 11/10/16 07:18 11/10/16 07:18 11/10/16 07:18 11/10/16 07:18 11/10/16 07:18 General appearance: Present: A&O X 3, pleasant, no acute distress - Head Head exam: Present: atraumatic, normocephalic - Respiratory Respiratory exam: Present: CTAB. Absent: accessory muscle use, rales, rhonchi, wheezes - Cardiovascular Cardiovascular exam: Present: RRR, +S1, +S2. Absent: diastolic murmur, gallop, rubs, systolic murmur - GI/Abdominal GI/Abdominal exam: Present: normal bowel sounds, soft, no peritoneal signs. Absent: distended, tenderness - Neurological Exam Neurological exam: Present: alert, oriented X3 - Psychiatric Psychiatric exam: Present: normal affect, normal mood Internal Medicine: Result - Labs CBC & Chem 7: 11/10/16 05:33 11/10/16 05:33 Labs: Short CBC 11/10/16 Range/Units 05:33 WBC 4.4 (4.3-11.1) K/mcL Hgb 12.5 (11.5-15.4) g/dL Hct 37.9 (35.3-44.9) % Plt Count 152 (140-400) K/mcL Neutrophils # 2.7 (1.6-8.9) K/mcL BMP 11/10/16 05:33 Sodium 139 D Potassium 3.4 L D Chloride 108 Carbon Dioxide 26 BUN 8 Creatinine 0.67 Glucose 82 Calcium 8.2 L - ABG Interpretation ABG results: PT/INR, D-dimer PT 31.8 Seconds (9.4-12.1) H 11/10/16 05:33 Consult Discharge Plan - Plan Referrals: Diya Donahue, DEPLOYMENT MANAGER [Primary Care Provider] - <Servando Lorenz - Last Filed: 11/10/16 11:37> Date of Encounter: 11/10/16 - Constitutional Vitals: Temp Pulse Resp BP Pulse Ox 97.5 F L 58 18 101/65 94 11/10/16 07:18 11/10/16 07:18 11/10/16 07:18 11/10/16 07:18 11/10/16 07:18 Internal Medicine: Result - Labs CBC & Chem 7: 11/10/16 05:33 11/10/16 05:33 Labs: Short CBC 11/10/16 Range/Units 05:33 WBC 4.4 (4.3-11.1) K/mcL Hgb 12.5 (11.5-15.4) g/dL Hct 37.9 (35.3-44.9) % Plt Count 152 (140-400) K/mcL Neutrophils # 2.7 (1.6-8.9) K/mcL BMP 11/10/16 05:33 Sodium 139 D Potassium 3.4 L D Chloride 108 Carbon Dioxide 26 BUN 8 Creatinine 0.67 Glucose 82 Calcium 8.2 L - ABG Interpretation ABG results: PT/INR, D-dimer PT 31.8 Seconds (9.4-12.1) H 11/10/16 05:33 - Attending Attestation I examined this patient and my medical decision-making was reviewed with the Resident Physician on 11/10/16. I agree with the documented findings, disposition and treatment plan as described except to the extent set forth below. 76 F admitted and being managed for symptomatic bradycardia with hypotension She is back to her baseline Cardiology is following No new events INR is therapeutic Slightly low potassium today-replaced Slightly prolonged QTC Physical exam is unremarkable Labs and Imaging reviewed Continue current management and follow cardiology recommendation She is waiting for 5 doses of rhythmol Rest of details as in resident physician's documentation
--- NOTE | 2016-11-10 09:53 | Cardiology Progress Note ---
Date of Encounter: 11/10/16 Time of Encounter: 08:30 Assessment and Plan (1) PAF (paroxysmal atrial fibrillation) Current Visit: Yes Status: Acute Patient reports feeling much better. BP's are stable but low normal. Heart rates are in the 50's. Recommend decreasing atenolol to once daily. Mild prolongation of QTc on this morning's ECG. Recommend continuing to follow at this time. No concerning dysrhythmia on telemetry. Patient is back in NSR. She is anticoagulated on coumadin. Discussion w patient/family: The assessment and plan as outlined above was discussed with the patient and/or family members who expressed understanding and agreement. All questions were answered. Thank you for involving us in the care of your patient. Please call with any questions. Subjective Principal diagnosis: PAF Interval history: Patient has no new complaints today. She reports feeling better. Objective Vital Signs, Last 4 Hours Temp Pulse Resp BP Pulse Ox 11/10/16 07:18 97.5 F L 58 18 101/65 94 General: Conversant, No Apparent Distress HEENT: Atraumatic, Normocephaly, Mucus Membranes Moist Neck: No JVD Cardiac: Reg Rate and Rhythm, Normal S1 and S2, No Murmur Lungs: Normal Breath Sounds, No Wheeze, Rales, Rhonchi Neuro: Alert and responsive, No focal deficits noted Abdomen: Soft, Non-Tender, Other (normal bowel sounds) Extremities: No Edema, Normal Pulses Results 11/10/16 05:33 11/10/16 05:33 Lab Results 11/10/16 11/10/16 11/10/16 05:33 05:33 05:33 WBC 4.4 Hgb 12.5 Hct 37.9 Plt Count 152 INR 2.9 APTT 39.4 H Sodium 139 D Potassium 3.4 L D Chloride 108 Carbon Dioxide 26 BUN 8 Creatinine 0.67 Glucose 82 Calcium 8.2 L - EKG Interpretation EKG results cardiology: personally reviewed (11/10/2016 ECG personally reviewed and compared to 11/09/2016 ECG; [place] interval is stable, there's a mild increase in QTc (425 to 465).), other (24 h telemetry was reviewed demonstrating sinus bradycardia average HR 50's, no pauses or concerning ectopy) Consult Discharge Plan - Plan Referrals: Diya Donahue, LITIGATION EXAMINER [Primary Care Provider] -
[2016-11-10] MEDS: *HR* Warfarin 4 MG TABLET PO SCH (16:47)
[2016-11-11] MEDS: 0.9 % Sodium Chloride 1,000 ML IVC SCH ×2 (01:35→09:24)
[2016-11-11 05:04] LABS: Hematocrit 37.9 % (35.3-44.9); Hemoglobin 12.4 g/dL (11.5-15.4); Mean Corpuscular HGB Conc 32.7 g/dL (31.6-35.5); Mean Corpuscular Hemoglobin 29.5 pg (28.0-33.3); Mean Corpuscular Volume 90.2 fL (83.0-100.0); Mean Platelet Volume 10.7 fL (9.4-12.4); Platelet Count 147 K/mcL (140-400); Red Cell Distribution Width 13.9 % (11.5-14.5)
[2016-11-11 05:09] LABS: INR 3.5; Prothrombin Time 38.9 Seconds (9.4-12.1)
[2016-11-11 05:19] LABS: BUN/Creatinine Ratio 14 (6-26); Blood Urea Nitrogen 10 mg/dL (7-20); Calcium 8.3 mg/dL (8.6-10.8); Carbon Dioxide 25 mEq/L (19-29); Chloride 110 mEq/L (98-109); Glucose 85 mg/dL (70-99); Osmolality,Calculated 286 (280-300); Potassium 3.9 mEq/L (3.5-4.5); Sodium 139 mEq/L (136-145); eGFR For African Americans > 60 (> 60); eGFR For Non-African Americans > 60 (> 60)
[2016-11-11] MEDS: Lactobacillus 1 EACH CAP.SPRINK PO SCH (09:06)
[2016-11-11] MEDS: Aspirin 81 MG TAB.CHEW PO SCH (09:06)
--- NOTE | 2016-11-11 09:07 | Cardiology Progress Note ---
Date of Encounter: 11/11/16 Time of Encounter: 08:40 Assessment and Plan (1) PAF (paroxysmal atrial fibrillation) Current Visit: Yes Status: Acute Hx of PAF, diagnosed 2-3 years ago; has maintained SR on Rythmol, CCB, and BB. Anticoagulated on Coumadin, INR followed by [facility]. Reports palpitations, racing heart, and irregular heart beats for the past 2-3 weeks. ECG upon arrival to ED showed AF, HR 58. Discussed with Dr. Newberry; recommend increasing Rythmol to 225 mg P3T--cnlsj dose was given on 812 PM. Will require inpatient monitoring for at least 5 doses. Kidney function normal. Obtain daily ECG's to monitor QRS. Now s/p 2 doses-- anticipate discharge on 11/12/16. ECG this AM SR 60 QRS 98 ms QT/QTc 449/450 ms. Continue rythmol 225 mg Q8H, and atenolol 25 mg daily. Cardizem stopped. Continue Coumadin, INR 2.7. Goal INR 2-3. If she would require CV, will need BRENDA prior to given subtherapeutic INR on 11/06/16. (2) Hypotension Current Visit: Yes Status: Acute Resolved. Qualifiers: Hypotension type: hypotension due to drug Qualified Code(s): I95.2 - Hypotension due to drugs Discussion w patient/family: The assessment and plan as outlined above was discussed with the patient and/or family members who expressed understanding and agreement. All questions were answered. Thank you for involving us in the care of your patient. Please call with any questions. The patient was discussed and reviewed with Dr. Newberry who agrees with plan as stated above. Subjective Principal diagnosis: PAF Interval history: Seen and examined. no complaints. Has maintained NSR since admission. Objective Vital Signs, Last 4 Hours Temp Pulse Resp BP Pulse Ox 11/11/16 07:34 97.4 F L 58 18 161/78 97 General: Conversant, No Apparent Distress HEENT: Atraumatic, Normocephaly, Mucus Membranes Moist Neck: No JVD, Normal carotid pulses Cardiac: Reg Rate and Rhythm, Normal S1 and S2, No Murmur Lungs: Normal Breath Sounds, No Wheeze, Rales, Rhonchi Neuro: Alert and responsive, No focal deficits noted Abdomen: Soft, Non-Tender Skin: No rashes noted on visualized skin Musculoskeletal: No Chest Wall Tenderness Extremities: No Clubbing, No Cyanosis, No Edema, Normal Pulses Results 11/11/16 04:30 11/11/16 04:30 Lab Results 11/11/16 11/11/16 11/11/16 04:30 04:30 04:30 WBC 3.8 L Hgb 12.4 Hct 37.9 Plt Count 147 INR 3.5 Sodium 139 Potassium 3.9 Chloride 110 H Carbon Dioxide 25 BUN 10 Creatinine 0.72 Glucose 85 Calcium 8.3 L Active Medications Acetaminophen (Tylenol) 650 mg PO Q6HR PRN PRN Reason: Mild Pain (1-3) Stop: 05/11/17 16:30 Al Hydrox/Mg Hydrox/Simethicone (Maalox) 15 ml PO Q6HR PRN PRN Reason: Dyspepsia Stop: 05/11/17 16:30 Alprazolam (Xanax) 0.25 mg PO BID PRN; Protocol PRN Reason: Anxiety Stop: 05/11/17 16:31 Aspirin (Aspirin) 81 mg PO DAILY [facility] Stop: 05/12/17 09:01 Last Admin: 11/10/16 08:24 Dose: 81 mg Atenolol (Tenormin) 25 mg PO DAILY [facility] Stop: 05/13/17 09:01 Docusate Sodium (Colace) 100 mg PO BID PRN PRN Reason: Constipation Stop: 05/11/17 16:30 Doxepin HCl (Sinequan) 25 mg PO HS [facility] Stop: 05/11/17 21:01 Last Admin: 11/10/16 21:09 Dose: 25 mg Sodium Chloride (0.9 % Sodium Chloride) 1,000 mls @ 110 mls/hr IVC .Q9H6M [facility] Stop: 05/11/17 15:16 Last Admin: 11/11/16 01:35 Dose: 110 mls/hr Lactobacillus Acidophilus/Rhamnosus (Culturelle) 1 each PO DAILY [facility] Stop: 05/12/17 09:01 Last Admin: 11/10/16 08:24 Dose: 1 each Naloxone HCl (Narcan) 0.4 mg IVP Q2MIN PRN PRN Reason: Opioid Reversal Stop: 05/11/17 16:30 Omeprazole (Prilosec) 20 mg PO DAILY [facility] PRN Reason: Protocol Stop: 02/11/18 09:01 Last Admin: 11/10/16 08:24 Dose: 20 mg Propafenone HCl (Rhythmol) 225 mg PO Q8H [facility] Stop: 05/12/17 22:01 Last Admin: 11/11/16 05:54 Dose: 225 mg Rosuvastatin Calcium (Crestor) 20 mg PO HS [facility] Stop: 05/12/17 21:01 Last Admin: 11/10/16 21:08 Dose: 20 mg Warfarin Sodium (Coumadin) 2 mg PO SuTh@1800 [facility] Stop: 05/13/17 18:01 Warfarin Sodium (Coumadin) 4 mg PO MoTuWeFrSa@1800 [facility] Stop: 05/11/17 18:01 Last Admin: 11/10/16 16:47 Dose: 4 mg - Imaging and Cardiology Echo: report reviewed Cardiac cath: report reviewed Other Results: 12 hour tele: avg HR=61 SR. Min=50 (noct). No pause - EKG Interpretation EKG results cardiology: personally reviewed - VTE Documentation of Mechanical Device: Graduated compression elastic hosiery Consult Discharge Plan - Plan Referrals: Diya Donahue, INSTRUMENTATION AND CONTROL TECHNICIAN [Primary Care Provider] - (Web requested 11/11/16)
--- NOTE | 2016-11-11 10:49 | Internal Med Progress Note ---
Date of Encounter: 11/11/16 Time of Encounter: 10:49 - Assessment and plan (1) HTN (hypertension) Current Visit: No Status: Chronic Qualifiers: Hypertension type: essential hypertension Qualified Code(s): I10 - Essential (primary) hypertension (2) DVT prophylaxis Current Visit: Yes Status: Acute Assessment and plan: continue Coumadin, INR supratherapeutic, hold coumadin tonight (3) Bradycardia Current Visit: Yes Status: Acute Assessment and plan: Improved, continue telemetry (4) PAF (paroxysmal atrial fibrillation) Current Visit: Yes Status: Acute Assessment and plan: Admitted with Afib with slow ventricular response HR has improved on rhythmol Cardiology is following Diltiazem was discontinued, Atenolol was decreased INR supratherapeutic today, pharmacy to adjust Continue current management (5) Hypotension Current Visit: Yes Status: Acute Assessment and plan: Resolved with IVF hydration Qualifiers: Hypotension type: hypotension due to drug Qualified Code(s): I95.2 - Hypotension due to drugs - Subjective Interval history: Seen and evaluated at bedside Ambulatory, no new complains - Constitutional Vitals: Temp Pulse Resp BP Pulse Ox 97.4 F L 58 18 161/78 96 11/11/16 07:34 11/11/16 07:34 11/11/16 07:34 11/11/16 07:34 11/11/16 09:11 General appearance: Present: A&O X 3, pleasant, no acute distress - Head Head exam: Present: atraumatic, normocephalic - Eye Eye exam: Present: PERRL, conjuntiva pink, sclera anicteric Pupils: Present: PERRL - Neck Neck exam general surgery: Present: supple, trachea midline. Absent: lymphadenopathy - Respiratory Respiratory exam: Present: CTAB. Absent: accessory muscle use, rales, rhonchi, wheezes - Cardiovascular Cardiovascular exam: Present: RRR, +S1, +S2. Absent: diastolic murmur, gallop, rubs, systolic murmur - GI/Abdominal GI/Abdominal exam: Present: normal bowel sounds, soft, no peritoneal signs. Absent: distended, tenderness - Extremities Exam Extremities exam: Present: warm, radial pulses palpable and symmetrical. Absent : calf tenderness, cyanotic, pedal edema - Neurological Exam Neurological exam: Present: alert, CN II-XII intact, oriented X3, no focal deficits. Absent: pronater drift, facial droop, speech deficit - Skin Skin exam: Present: dry, intact Internal Medicine: Result - Labs CBC & Chem 7: 11/11/16 04:30 11/11/16 04:30 Labs: Short CBC 11/11/16 Range/Units 04:30 WBC 3.8 L (4.3-11.1) K/mcL Hgb 12.4 (11.5-15.4) g/dL Hct 37.9 (35.3-44.9) % Plt Count 147 (140-400) K/mcL BMP 11/11/16 04:30 Sodium 139 Potassium 3.9 Chloride 110 H Carbon Dioxide 25 BUN 10 Creatinine 0.72 Glucose 85 Calcium 8.3 L - ABG Interpretation ABG results: PT/INR, D-dimer PT 38.9 Seconds (9.4-12.1) H 11/11/16 04:30 - VTE Documentation of Mechanical Device: Graduated compression elastic hosiery Consult Discharge Plan - Plan Referrals: Diya Donahue ELEVATOR ERECTOR HELPER [Primary Care Provider] - (Web requested 11/11/16)
--- NOTE | 2016-11-11 12:08 | Electrocardiograph Report ---
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
--- NOTE | 2016-11-11 12:27 | Electrocardiograph Report ---
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
--- NOTE | 2016-11-11 13:09 | Electrocardiograph Report ---
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
[2016-11-11] MEDS ORDERED: *HR* Warfarin 2 MG TABLET PO SCH (18:00)
[2016-11-12 05:39] LABS: BUN/Creatinine Ratio 18 (6-26); Blood Urea Nitrogen 12 mg/dL (7-20); Calcium 9.2 mg/dL (8.6-10.8); Carbon Dioxide 27 mEq/L (19-29); Chloride 106 mEq/L (98-109); Glucose 85 mg/dL (70-99); Osmolality,Calculated 289 (280-300); Potassium 3.9 mEq/L (3.5-4.5); Sodium 140 mEq/L (136-145); eGFR For African Americans > 60 (> 60); eGFR For Non-African Americans > 60 (> 60)
[2016-11-12 06:41] LABS: Hematocrit 38.4 % (35.3-44.9); Mean Corpuscular HGB Conc 33.9 g/dL (31.6-35.5); Mean Corpuscular Hemoglobin 29.9 pg (28.0-33.3); Mean Corpuscular Volume 88.3 fL (83.0-100.0); Mean Platelet Volume 11.3 fL (9.4-12.4); Platelet Count 159 K/mcL (140-400); Red Blood Count 4.35 M/mcL (3.82-4.97); Red Cell Distribution Width 13.6 % (11.5-14.5)
--- NOTE | 2016-11-12 07:06 | Electrocardiograph Report ---
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
[2016-11-12 09:03] LABS: Prothrombin Time 33.6 Seconds (9.4-12.1)
[2016-11-12] MEDS: Aspirin 81 MG TAB.CHEW PO SCH (09:07)
[2016-11-12] MEDS: Lactobacillus 1 EACH CAP.SPRINK PO SCH (09:07)
--- NOTE | 2016-11-12 09:12 | Discharge Summary ---
<John Trevioñ - Last Filed: 11/12/16 13:02> Date of Encounter: 11/12/16 Time of Encounter: 09:01 - Discharge Diagnosis (1) PAF (paroxysmal atrial fibrillation) Priority: Primary Status: Acute (2) Hypotension Priority: Secondary Status: Acute Qualifiers: Hypotension type: hypotension due to drug Qualified Code(s): I95.2 - Hypotension due to drugs (3) DVT prophylaxis Priority: Secondary Status: Acute (4) Bradycardia Priority: Secondary Status: Acute - Discharge Medications Prescriptions: Propafenone HCl 225 mg PO Q8HR #90 Home Medications: ALPRAZolam [Xanax 0.25 MG Tablet] 0.25 mg PO BID PRN 03/19/16 [History] Ascorbate Calcium/Bioflavonoid [Jenae-C 500 mg Tablet] 500 mg PO DAILY 03/19/16 [History] Aspirin 81 mg PO DAILY 03/19/16 [History] Cholecalciferol (D-3) [Vitamin D] 1,000 unit PO DAILY 03/19/16 [History] Doxepin [Sinequan] 25 mg PO HS 03/19/16 [History] Garlic [Odor Free Garlic] 1,000 mg PO DAILY 03/19/16 [History] L. Acidophilus/Pectin, [place] [Acidophilus Probiotic Capsule] 1 cap PO DAILY [History] Multivitamin [One Daily Essential] 1 tab PO DAILY 03/19/16 [History] [place]-3/Dha/Epa/Fish Oil [Fish Oil 1,000 mg Softgel] 1,000 mg PO DAILY 03/19/16 [History] Polyethylene Glycol 3350 [MiraLAX] 17 gm PO DAILY 03/19/16 [History] Potassium Gluconate 550 mg PO DAILY 03/19/16 [History] Rosuvastatin [Crestor] 20 mg PO DAILY 03/19/16 [History] Vitamin B Complex Vit C No.4 [Super B Complex] 150 mg PO DAILY 03/19/16 [History ] Alendronate Sodium [Fosamax] 70 mg PO QWEEK 11/09/16 [History] Calcium Carbonate/Vitamin D3 [Calcium 600-Vit D3 800 Tablet] 1 each PO DAILY 02/15 [History] Omeprazole [PriLOSEC] 20 mg PO DAILY 11/09/16 [History] Atenolol [Tenormin] 25 mg PO DAILY tab 11/12/16 [Rx] Propafenone HCl 225 mg PO Q8HR #90 11/12/16 [Rx] Warfarin [Coumadin] 2 mg PO SUTUTH #12 11/12/16 [Rx] Warfarin [Coumadin] 4 mg PO MOWEFRSA #16 11/12/16 [Rx] Allergies/Adverse Reactions: Allergies No Known Allergies Allergy (Verified 11/09/16 12:04) Procedures/tests Complete & Pending: Procedures Performed prior 72 hours Category Date Time Status ECG 12 lead ECG [ECG] AM 06 Y 11/10/16 06:00 Completed ECG 12 lead ECG [ECG] AM 06 Y 11/11/16 06:00 Completed ECG 12 lead ECG [ECG] AM 06 Y 11/12/16 06:00 Ordered ECG 12 lead ECG [ECG] AM 06 Y 11/13/16 06:00 Ordered Date of admission: 11/09/16 16:34 Primary care physician: Diya Doanhue CNP - Patient Status Disposition: Home, Self-Care Condition: Good Overall status at discharge: patient is back to baseline - Discharge Instructions Instructions: Atrial Fibrillation (DC) Follow Up With: Diya Donahue CNP [Primary Care Provider] - 11/20/16 10:00 am (Diya Oviedo new Office number is [phone]) Eliana Newberry DO [Partnered Physician] - Additional Instructions: diltiazem was discontinued, and Atenolol was reduced to 25 mg BID. Rhythmol was increased - Diet and Activity Activity: as per the cardiac rehab Diet: low salt diet Hospital course: Ms. Block is a 76 year old female who presented to ED due to palpitations, weakness, and lightheadness with history HTN, HLD, anxiet, Afib, GERD. Afib is rate and rhythm controlled with diltiazem, atenolol, and rhthmol, and is anticoagulated with Coumadin. Evaluation in emergency department revealed patient was bradycardic with heart rate ranging from the 30s to 50s. EKG showed A. fib with slow ventricular response her INR was therapeutic at 2.7. Troponin was negative at 0.00. TSH was within normal limits. Chest x-ray showed no acute process. Patient was also noted to be hypotensive with blood pressures in the 90s systolic. She was given 2 L of fluids and her blood pressure and heart rate improved, and she converted to sinus rhythm. Cardiology was consulted and recommended to hold diltiazem, lower BB, and to increase Rhythmol and to be monitored for 5 doses. She was continuously monitored on tele, EKG, and INR. Last day of observation on 11/12. - Time Spent with Patient Total time spent providing and/or coordinating discharge services: - Constitutional Vitals: Temp Pulse Resp BP Pulse Ox 97.5 F L 64 17 151/78 97 11/12/16 06:58 11/12/16 06:58 11/12/16 06:58 11/12/16 06:58 11/12/16 06:58 General appearance: Present: A&O X 3, pleasant, no acute distress - Head Head exam: Present: atraumatic, normocephalic - Respiratory Respiratory exam: Present: CTAB. Absent: accessory muscle use, rales, rhonchi, wheezes - Cardiovascular Cardiovascular exam: Present: RRR, +S1, +S2. Absent: diastolic murmur, gallop, rubs, systolic murmur - GI/Abdominal GI/Abdominal exam: Present: normal bowel sounds, soft, no peritoneal signs. Absent: distended, tenderness - Neurological Exam Neurological exam: Present: alert, oriented X3 - Psychiatric Psychiatric exam: Present: normal affect, normal mood - VTE Documentation of Mechanical Device: Graduated compression elastic hosiery <Servando Lorenz T - Last Filed: 11/12/16 14:26> Date of Encounter: 11/12/16 - Discharge Diagnosis (1) HTN (hypertension) Status: Chronic Qualifiers: Hypertension type: essential hypertension Qualified Code(s): I10 - Essential (primary) hypertension (2) DVT prophylaxis Status: Acute (3) Bradycardia Status: Acute (4) PAF (paroxysmal atrial fibrillation) Status: Acute (5) Hypotension Status: Acute Qualifiers: Hypotension type: hypotension due to drug Qualified Code(s): I95.2 - Hypotension due to drugs Procedures/tests Complete & Pending: Procedures Performed prior 72 hours Category Date Time Status ECG 12 lead ECG [ECG] AM 0600 Y 11/10/16 06:00 Completed ECG 12 lead ECG [ECG] AM 0600 Y 11/11/16 06:00 Completed ECG 12 lead ECG [ECG] AM 0600 Y 11/12/16 06:00 Ordered Date of admission: 11/09/16 16:34 Primary care physician: Diya Donahue CNP Hospital course: Ms. Block is a 76 year old female - Time Spent with Patient Total time spent providing and/or coordinating discharge services: Greater than 30 minutes - Constitutional Vitals: Temp Pulse Resp BP Pulse Ox 97.7 F 61 17 173/80 98 11/12/16 11:41 11/12/16 11:41 11/12/16 11:41 11/12/16 11:41 11/12/16 11:41 - Attending Attestation I examined this patient and my medical decision-making was reviewed with the Resident Physician on 11/12/16. I agree with the documented findings, disposition and treatment plan as described except to the extent set forth below. 76 F admitted and managed for symptomatic bradycardia with hypotension. She is back to her baseline Cardiology was consulted and increased her rhythmol, discontinued diltiazem, decreased atenolol. She has been clinically stable in-patient INR was supratherapeutic possibly due to increased doses of rhythmol Physical exam is unremarkable Labs and Imaging reviewed Stable for discharge follow up in INR clinic and with cardiology Rest of details as in resident physician's documentation
--- NOTE | 2016-11-12 11:19 | Cardiology Progress Note ---
Date of Encounter: 11/12/16 Time of Encounter: 11:16 Assessment and Plan (1) PAF (paroxysmal atrial fibrillation) Current Visit: Yes Status: Acute Hx of PAF, diagnosed 2-3 years ago; has maintained SR on Rythmol, CCB, and BB. Anticoagulated on Coumadin, INR followed by [facility]. Reports palpitations, racing heart, and irregular heart beats for the past 2-3 weeks. ECG upon arrival to ED showed AF, HR 58. Increased Rythmol to 225 mg Q9A--jvwjx dose was given on 812 PM. 5th dose today. Kidney function normal. Obtained daily ECG's to monitor QRS. Now s/p 4 doses-- anticipate discharge today on 11/12/16 after 5th dose. ECG this AM SR 68 QRS 110 ms QT/QTc 422/440 ms. Continue rythmol 225 mg Q8H, and atenolol 25 mg daily. Cardizem stopped. Continue Coumadin, INR 2.7. Goal INR 2-3. Follow-up as outpt in 2-3 weeks. Will sign off. Reconsult PRN. Discussion w patient/family: The assessment and plan as outlined above was discussed with the patient and/or family members who expressed understanding and agreement. All questions were answered. Thank you for involving us in the care of your patient. Please call with any questions. I will discuss all the above with Dr. Lemus and make changes as necessary. Subjective Principal diagnosis: PAF Interval history: Pt denies complaints this AM. Reports feeling well. SR. Pt has received 4 doses of increased Rythmol 225mg [id number]. 5th dose will be at 1400 today. EKG reviewed from this AM. SR with 1st degree AV block, QRS 110, QTc 440ms. Objective Vital Signs Temp Pulse Resp BP Pulse Ox 11/12/16 06:58 97.5 F L 64 17 151/78 97 11/12/16 04:44 98 F 62 16 137/79 94 11/11/16 21:37 65 160/79 11/11/16 19:29 97.7 F 67 18 175/77 97 11/11/16 15:28 97.4 F L 55 17 152/75 95 Intake and Output 11/11/16 11/12/16 11/12/16 23:59 07:59 15:59 Intake Total 260 / 260 360 / 360 Balance 260 / 260 360 / 360 Intake: Oral 260 / 260 360 / 360 Other: Meal Dinner Breakfast Percent of Meal Consumed 100% 100% Weight 66.814 kg Patient Weight 11/12/16 23:59 Weight 66.814 kg General: Conversant, No Apparent Distress HEENT: Atraumatic, Normocephaly, Mucus Membranes Moist Neck: No JVD, Normal carotid pulses Cardiac: Reg Rate and Rhythm, Normal S1 and S2, No Murmur Lungs: Normal Breath Sounds, No Wheeze, Rales, Rhonchi Neuro: Alert and responsive, No focal deficits noted Abdomen: Soft, Non-Tender Skin: No rashes noted on visualized skin Musculoskeletal: No Chest Wall Tenderness Extremities: No Clubbing, No Cyanosis, No Edema, Normal Pulses Results 11/12/16 04:27 11/12/16 04:27 Lab Results 11/12/16 11/12/16 11/12/16 04:27 04:27 08:41 WBC 4.4 Hgb 13.0 Hct 38.4 Plt Count 159 INR 3.0 Sodium 140 Potassium 3.9 Chloride 106 Carbon Dioxide 27 BUN 12 Creatinine 0.68 Glucose 85 Calcium 9.2 Short CBC 11/12/16 Range/Units 04:27 WBC 4.4 (4.3-11.1) K/mcL Hgb 13.0 (11.5-15.4) g/dL Hct 38.4 (35.3-44.9) % Plt Count 159 (140-400) K/mcL BMP 11/12/16 Range/Units 04:27 Sodium 140 (136-145) mEq/L Potassium 3.9 (3.5-4.5) mEq/L Chloride 106 (98-109) mEq/L Carbon Dioxide 27 (19-29) mEq/L BUN 12 (7-20) mg/dL Creatinine 0.68 (0.57-1.11) mg/dL Glucose 85 (70-99) mg/dL Calcium 9.2 (8.6-10.8) mg/dL Active Medications Acetaminophen (Tylenol) 650 mg PO Q6HR PRN PRN Reason: Mild Pain (1-3) Stop: 05/11/17 16:30 Al Hydrox/Mg Hydrox/Simethicone (Maalox) 15 ml PO Q6HR PRN PRN Reason: Dyspepsia Stop: 05/11/17 16:30 Alprazolam (Xanax) 0.25 mg PO BID PRN; Protocol PRN Reason: Anxiety Stop: 05/11/17 16:31 Last Admin: 11/11/16 21:50 Dose: 0.25 mg Aspirin (Aspirin) 81 mg PO DAILY [facility] Stop: 05/12/17 09:01 Last Admin: 11/12/16 09:07 Dose: 81 mg Atenolol (Tenormin) 25 mg PO DAILY [facility] Stop: 05/13/17 09:01 Last Admin: 11/12/16 09:07 Dose: 25 mg Docusate Sodium (Colace) 100 mg PO BID PRN PRN Reason: Constipation Stop: 05/11/17 16:30 Doxepin HCl (Sinequan) 25 mg PO HS [facility] Stop: 05/11/17 21:01 Last Admin: 11/11/16 21:47 Dose: 25 mg Hydralazine HCl (Hydralazine) 10 mg IVP Q6HR PRN PRN Reason: SBP > 160 Stop: 05/13/17 19:49 Lactobacillus Acidophilus/Rhamnosus (Culturelle) 1 each PO DAILY [facility] Stop: 05/12/17 09:01 Last Admin: 11/12/16 09:07 Dose: 1 each Naloxone HCl (Narcan) 0.4 mg IVP Q2MIN PRN PRN Reason: Opioid Reversal Stop: 05/11/17 16:30 Omeprazole (Prilosec) 20 mg PO DAILY [facility] PRN Reason: Protocol Stop: 05/12/17 09:01 Last Admin: 11/12/16 09:07 Dose: 20 mg Propafenone HCl (Rhythmol) 225 mg PO Q8H [facility] Stop: 05/12/17 22:01 Last Admin: 11/12/16 06:09 Dose: 225 mg Rosuvastatin Calcium (Crestor) 20 mg PO HS [facility] Stop: 05/12/17 21:01 Last Admin: 11/11/16 21:50 Dose: 20 mg Warfarin Sodium (Coumadin) 2 mg PO SuTh@1800 [facility] Stop: 05/13/17 18:01 Last Admin: 11/11/16 15:03 Dose: Not Given Warfarin Sodium (Coumadin) 4 mg PO MoTuWeFrSa@1800 [facility] Stop: 02/10/18 18:01 Last Admin: 11/10/16 16:47 Dose: 4 mg - EKG Interpretation EKG results cardiology: other (12 hr tele AVG HR 63, SR) - VTE Documentation of Mechanical Device: Graduated compression elastic hosiery Consult Discharge Plan - Plan Additional Instructions: diltiazem was discontinued, and Atenolol was reduced to 25 mg BID. Rhythmol was increased Referrals: Diya Donahue CNP [Primary Care Provider] - 11/20/16 10:00 am (Diya Oviedo new Office number is [phone]) Eliana Newberry DO [Partnered Physician] -
[2016-11-12 11:43] VITALS: BP 173/80
--- NOTE | 2016-11-14 06:55 | Electrocardiograph Report ---
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
--- NOTE | 2016-11-14 12:57 | Electrocardiograph Report ---
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
== END 2016-11-12 14:07 | disposition home or self-care (01) ==
LOC: 2ANU 11:58 → EMEROO 11:58 → 2ANU 18:36
PROVIDERS: ADMIT Internal Medicine Endocrinology, Diabetes & Metabolism; ATTEND Internal Medicine

== ENCOUNTER 2019-12-21 11:07 | Observation (INO) ==
[2019-12-21] MEDS ORDERED: Aspirin 81 MG TAB.CHEW PO ONE (11:10)
[2019-12-21] MEDS ORDERED: Nitroglycerin 0.4 MG TAB.SUBL SL PRN (11:10)
[2019-12-21 11:34] LABS: Basophils % 0.4 %; Eosinophils % 0.6 %; Hematocrit 43.6 % (35.3-44.9); Immature Granulocytes % 0.4 % (0-4); Lymphocytes # 1.3 K/mcL (0.6-4.6); Lymphocytes % 24.1 %; Mean Corpuscular HGB Conc 32.1 g/dL (31.6-35.5); Mean Corpuscular Volume 93.4 fL (83.0-100.0); Mean Platelet Volume 10.4 fL (9.4-12.4); Monocytes # 0.4 K/mcL (0.0-1.3); Monocytes % 8.2 %; Neutrophils # 3.5 K/mcL (1.6-8.9); Platelet Count 217 K/mcL (140-400); Red Blood Count 4.67 M/mcL (3.82-4.97); Red Cell Distribution Width 13.9 % (11.5-14.5); Segmented Neutrophils % 66.3 %; White Blood Count 5.3 K/mcL (4.3-11.1)
[2019-12-21 11:53] LABS: INR 3.1; Prothrombin Time 35.6 Seconds (9.4-12.1)
[2019-12-21 11:56] LABS: Activated Partial Thrombo Time 49.8 Seconds (26.0-36.0)
[2019-12-21 12:02] LABS: BUN/Creatinine Ratio 16 (6-26); Blood Urea Nitrogen 10 mg/dL (8-23); Calcium 8.8 mg/dL (8.6-10.3); Carbon Dioxide 29 mEq/L (23-29); Chloride 97 mEq/L (98-107); Glucose 104 mg/dL (70-105); Osmolality,Calculated 277 (280-300); Potassium 4.2 mEq/L (3.5-5.1); Sodium 134 mEq/L (136-145); Troponin I < 0.03 ng/mL (< 0.04); eGFR For African Americans > 60 (> 60); eGFR For Non-African Americans > 60 (> 60)
[2019-12-21] MEDS ORDERED: ALPRAZolam 0.25 MG TABLET PO PRN (12:37)
[2019-12-21] MEDS ORDERED: MOM Conc 10 ML UD.LIQ PO PRN (12:41)
[2019-12-21] MEDS ORDERED: *HR* HYDROcodone/Acet 5/325 mg TABLET PO PRN (12:41)
[2019-12-21] MEDS ORDERED: Mag Hydrox/Al Hydrox/Simeth 30 ML UDC PO PRN (12:41)
[2019-12-21] MEDS ORDERED: Ondansetron 4 MG/2 ML VIAL IVP PRN (12:41)
[2019-12-21] MEDS ORDERED: Naloxone 0.4 MG/ML INJ IVP PRN (12:41)
[2019-12-21] MEDS ORDERED: *HR* Promethazine 25 MG/ML VIAL IVP PRN (12:41)
[2019-12-21] MEDS ORDERED: Acetaminophen 325 MG TABLET PO PRN (12:41)
[2019-12-21] MEDS ORDERED: Perflutren Lipid Microsphere 1.3 ML in 0.9 % Sodium Chloride 8.7 ML IVP PRN (12:43)
[2019-12-21] MEDS ORDERED: NON-FORMULARY MEDICATION 1 EACH EACH (Alendronate Sodium [Fosamax] 70 MG) PO SCH (12:45)
[2019-12-21] MEDS: amLODIPine 5 MG TABLET PO SCH (14:10)
[2019-12-21] MEDS ORDERED: Warfarin perPT PO PRN (18:00)
[2019-12-21] MEDS ORDERED: *HR* Warfarin 1 MG TABLET PO ONE (18:00)
[2019-12-22 00:24] LABS: Basophils % 0.2 %; Eosinophils % 0.7 %; Hematocrit 38.6 % (35.3-44.9); Hemoglobin 12.8 g/dL (11.5-15.4); Immature Granulocytes % 0.2 % (0-4); Lymphocytes # 1.1 K/mcL (0.6-4.6); Lymphocytes % 27.8 %; Mean Corpuscular HGB Conc 33.2 g/dL (31.6-35.5); Mean Corpuscular Volume 90.6 fL (83.0-100.0); Mean Platelet Volume 10.4 fL (9.4-12.4); Monocytes # 0.5 K/mcL (0.0-1.3); Monocytes % 12.1 %; Neutrophils # 2.4 K/mcL (1.6-8.9); Platelet Count 189 K/mcL (140-400); Red Blood Count 4.26 M/mcL (3.82-4.97); Red Cell Distribution Width 13.8 % (11.5-14.5); White Blood Count 4.1 K/mcL (4.3-11.1)
[2019-12-22 00:32] LABS: BUN/Creatinine Ratio 21 (6-26); Blood Urea Nitrogen 11 mg/dL (8-23); Calcium 8.7 mg/dL (8.6-10.3); Carbon Dioxide 27 mEq/L (23-29); Chloride 103 mEq/L (98-107); Chol/HDL Ratio 2.2 (0-4.9); Cholesterol 137 mg/dL (< 200); Glucose 85 mg/dL (70-105); HDL Cholesterol 63 mg/dL (40-59); LDL Cholesterol,Calculated 64 mg/dL (< 100); Osmolality,Calculated 285 (280-300); Phosphorous 3.5 mg/dL (2.7-4.5); Potassium 3.6 mEq/L (3.5-5.1); Sodium 138 mEq/L (136-145); Triglycerides 49 mg/dL (< 150); eGFR For African Americans > 60 (> 60); eGFR For Non-African Americans > 60 (> 60)
[2019-12-22 02:11] LABS: INR 3.1; Prothrombin Time 35.6 Seconds (9.4-12.1)
[2019-12-22] MEDS ORDERED: Regadenoson 0.4 MG/5 ML SYRINGE IVP ONE (06:43)
[2019-12-22] MEDS ORDERED: atenoloL 25 MG TABLET PO SCH (09:00)
[2019-12-22] MEDS ORDERED: Magnesium Oxide 400 MG TABLET PO SCH (09:00)
[2019-12-22] MEDS ORDERED: Vitamin B Complex/Vit C/Vit E 1 EACH TABLET PO SCH (09:00)
[2019-12-22] MEDS ORDERED: Cholecalciferol (D-3) 1,000 UNIT (25MCG) TABLET PO SCH (09:00)
[2019-12-22] MEDS ORDERED: Multivit/Ca/Min/Fe/FA 1 TAB TABLET PO SCH (09:00)
[2019-12-22] MEDS ORDERED: Aspirin 81 MG TAB.CHEW PO SCH (09:00)
[2019-12-22] MEDS ORDERED: Lactobacillus 1 EACH CAP.SPRINK PO SCH (09:00)
[2019-12-22 11:07] VITALS: BP 107/63
[2019-12-22] MEDS: amLODIPine 5 MG TABLET PO SCH (11:07)
== END 2019-12-22 15:56 | disposition home or self-care (01) ==
LOC: EMEROOARM 11:07 → 3BNU 11:07
PROVIDERS: ADMIT Internal Medicine; ATTEND Internal Medicine

== ENCOUNTER 2021-08-22 06:26 | Inpatient (IN) ==
[2021-08-22] MEDS ORDERED: *HR* Heparin 10,000 UNIT/10 ML VIAL ONE (07:15)
[2021-08-22] MEDS ORDERED: Heparin 1,000 UNITS/500 mL 1,500 ML ONE (07:15)
[2021-08-22] MEDS ORDERED: ISOVUE-370 200 ML INFUS..BTL ONE (07:16)
[2021-08-22] MEDS ORDERED: 0.9 % Sodium Chloride 1,000 ML ONE ×3 (07:16→09:07)
[2021-08-22] MEDS ORDERED: Protamine Sulfate 50 MG/5 ML VIAL IVP ONE (07:23)
[2021-08-22] MEDS ORDERED: *HR* FentaNYL (PF) 100 MCG/2 ML VIAL ONE (07:30)
[2021-08-22] MEDS ORDERED: Perflutren Lipid Microsphere 1.3 ML in 0.9 % Sodium Chloride 8.7 ML IVP PRN (10:29)
[2021-08-22] MEDS ORDERED: ALPRAZolam 0.25 MG TABLET PO PRN (10:31)
[2021-08-22] MEDS ORDERED: Ondansetron 4 MG/2 ML VIAL IVP PRN (10:37)
[2021-08-22] MEDS ORDERED: *HR* Phenylephrine 10 MG/ML VIAL IVC ONE (13:04)
[2021-08-22] MEDS ORDERED: *HR* Rocuronium Bromide 50 MG/5 ML VIAL IVP ONE (13:04)
[2021-08-22] MEDS ORDERED: Ondansetron 4 MG/2 ML VIAL IVP ONE (13:04)
[2021-08-22] MEDS ORDERED: Lidocaine -MPF 2% 5 ML VIAL SQ ONE (13:04)
[2021-08-22] MEDS ORDERED: EPHEDrine 50 MG/ML VIAL IVP ONE (13:04)
[2021-08-22] MEDS ORDERED: *HR* Propofol 200 MG/20 ML VIAL IVP ONE (13:04)
[2021-08-22] MEDS: (Cyclosporine [Restasis] 1 EACH Droperette) OP SCH (20:19)
[2021-08-22] MEDS: Apixaban 5 MG TABLET PO SCH (20:21)
[2021-08-22] MEDS: atenoloL 50 MG TABLET PO SCH (20:21)
[2021-08-22] MEDS: cephALEXin 500 MG CAPSULE PO SCH (20:21)
[2021-08-22] MEDS: Magnesium Oxide 400 MG TABLET PO SCH (20:22)
[2021-08-22] MEDS ORDERED: polyethylene glycoL 3350 17 GM POWD.PACK PO SCH (21:00)
[2021-08-22] MEDS: Budesonide/Formoterol 80/4.5 1 PUFF INH IH SCH (21:59)
[2021-08-23 04:05] LABS: Eosinophils % 0.2 %; Hematocrit 36.1 % (35.3-44.9); Immature Granulocytes % 0.4 % (0-4); Lymphocytes # 0.6 K/mcL (0.6-4.6); Lymphocytes % 10.3 %; Mean Corpuscular HGB Conc 34.1 g/dL (31.6-35.5); Mean Corpuscular Hemoglobin 30.4 pg (28.0-33.3); Mean Corpuscular Volume 89.1 fL (83.0-100.0); Monocytes # 0.3 K/mcL (0.0-1.3); Monocytes % 6.2 %; Neutrophils # 4.5 K/mcL (1.6-8.9); Platelet Count 190 K/mcL (140-400); Red Blood Count 4.05 M/mcL (3.82-4.97); Red Cell Distribution Width 12.9 % (11.5-14.5); Segmented Neutrophils % 82.9 %; White Blood Count 5.5 K/mcL (4.3-11.1)
[2021-08-23 04:07] LABS: Hemoglobin 12.3 g/dL (11.5-15.4)
[2021-08-23 04:11] LABS: INR 1.6; Prothrombin Time 17.3 Seconds (9.4-12.1)
[2021-08-23 04:21] LABS: BUN/Creatinine Ratio 21 (6-26); Blood Urea Nitrogen 12 mg/dL (8-23); Calcium 8.5 mg/dL (8.6-10.3); Carbon Dioxide 26 mEq/L (23-29); Chloride 102 mEq/L (98-107); Glucose 136 mg/dL (70-105); Osmolality,Calculated 282 (280-300); Potassium 3.5 mEq/L (3.5-5.1); Sodium 135 mEq/L (136-145); eGFR For African Americans > 60 (> 60); eGFR For Non-African Americans > 60 (> 60)
[2021-08-23] MEDS: Apixaban 5 MG TABLET PO SCH (07:22)
[2021-08-23] MEDS: atenoloL 50 MG TABLET PO SCH (07:22)
[2021-08-23] MEDS: Magnesium Oxide 400 MG TABLET PO SCH (07:22)
[2021-08-23] MEDS: (Cyclosporine [Restasis] 1 EACH Droperette) OP SCH (07:23)
[2021-08-23] MEDS: cephALEXin 500 MG CAPSULE PO SCH (07:26)
[2021-08-23] MEDS ORDERED: hydroCHLOROthiazide 25 MG TABLET PO SCH (09:00)
[2021-08-23] MEDS ORDERED: Multivit/Ca/Min/Fe/FA 1 TAB TABLET PO SCH (09:00)
[2021-08-23] MEDS ORDERED: POTASSIUM GLUCONATE 90 MG PO SCH (09:00)
[2021-08-23] MEDS ORDERED: NON-FORMULARY MEDICATION 1 EACH EACH (Calcium Carbonate/Vitamin D3 [Calcium 600-Vit D3 800 PO SCH (09:00)
[2021-08-23] MEDS ORDERED: Vitamin B Complex/Vit C/Vit E 1 EACH TABLET PO SCH (09:00)
[2021-08-23] MEDS ORDERED: Cholecalciferol (D-3) 1,000 UNIT (25MCG) TABLET PO SCH (09:00)
[2021-08-23] MEDS ORDERED: Aspirin Enteric Coated 81 MG Tablet PO SCH (09:00)
[2021-08-23] MEDS ORDERED: Ascorbic Acid 500 MG TABLET PO SCH (09:00)
[2021-08-23] MEDS: Budesonide/Formoterol 80/4.5 1 PUFF INH IH SCH (09:39)
[2021-08-23 09:43] VITALS: O2SAT 98
[2021-08-23 11:36] VITALS: BP 159/61; PULSE 58; TEMP 97.6
[2021-08-24] MEDS ORDERED: atenoloL 50 MG TABLET PO SCH (09:00)
== END 2021-08-23 13:05 | disposition home or self-care (01) | DRG 274 ==
LOC: INVDIALAB 06:26 → 2NENU 11:54
PROVIDERS: ADMIT Internal Medicine Clinical Cardiac Electrophysiology; ATTEND Internal Medicine Clinical Cardiac Electrophysiology

== ENCOUNTER 2021-08-25 10:23 | Observation (INO) ==
[2021-08-25 11:13] LABS: Basophils % 0.3 %; Eosinophils % 0.3 %; Hematocrit 37.2 % (35.3-44.9); Hemoglobin 12.6 g/dL (11.5-15.4); Immature Granulocytes % 0.4 % (0-4); Lymphocytes # 1.4 K/mcL (0.6-4.6); Lymphocytes % 21.1 %; Mean Corpuscular HGB Conc 33.9 g/dL (31.6-35.5); Mean Corpuscular Hemoglobin 31.3 pg (28.0-33.3); Mean Corpuscular Volume 92.3 fL (83.0-100.0); Mean Platelet Volume 10.1 fL (9.4-12.4); Monocytes # 0.7 K/mcL (0.0-1.3); Monocytes % 10.7 %; Neutrophils # 4.5 K/mcL (1.6-8.9); Platelet Count 217 K/mcL (140-400); Red Blood Count 4.03 M/mcL (3.82-4.97); Red Cell Distribution Width 13.2 % (11.5-14.5); Segmented Neutrophils % 67.2 %; White Blood Count 6.7 K/mcL (4.3-11.1)
[2021-08-25 11:25] LABS: BUN/Creatinine Ratio 14 (6-26); Blood Urea Nitrogen 14 mg/dL (8-23); Calcium 8.8 mg/dL (8.6-10.3); Carbon Dioxide 29 mEq/L (23-29); Chloride 95 mEq/L (98-107); Glucose 157 mg/dL (70-105); Osmolality,Calculated 274 (280-300); Potassium 3.8 mEq/L (3.5-5.1); Sodium 130 mEq/L (136-145); eGFR For African Americans > 60 (> 60); eGFR For Non-African Americans 53 (> 60)
[2021-08-25 11:26] LABS: Troponin I < 0.03 ng/mL (< 0.04)
[2021-08-25] MEDS ORDERED: *HR* Atropine Sulfate 1 MG/10 ML SYRINGE IVP ONE (11:26)
[2021-08-25] MEDS ORDERED: Ondansetron 4 MG/2 ML VIAL IVP PRN (12:27)
[2021-08-25] MEDS ORDERED: Naloxone 0.4 MG/ML INJ IVP PRN (12:27)
[2021-08-25] MEDS ORDERED: Acetaminophen 325 MG TABLET PO PRN (12:27)
[2021-08-25] MEDS ORDERED: ALPRAZolam 0.25 MG TABLET PO PRN (12:32)
[2021-08-25 12:57] LABS: Bacteria,Urine Few per hpf (None-Few); Bilirubin,Urine Negative (Negative); Blood,Urine Negative (Negative); Clarity,Urine Clear (Clear); Color,Urine Light-Yellow (Yellow); Glucose,Urine (UA) Normal (Normal); Ketones,Urine Negative (Negative); Leukocyte Esterase,Urine Moderate (Negative); Mucus,Urine Few per lpf (None-Few); Nitrite,Urine Negative (Negative); Protein,Urine Negative (Neg-Trace); RBC,Urine 0-3 per hpf (0-3); Renal Epithelial Cells,Urine Few per hpf (None-Few); Specific Gravity,Urine 1.005 (1.010-1.025); Squamous Epithelial Cell,Urine Moderate per hpf (None-Few); Transitional Epi Cells,Urine Few per hpf (None-Few); Urobilinogen,Urine Normal (Normal)
[2021-08-25] MEDS ORDERED: Perflutren Lipid Microsphere 1.3 ML in 0.9 % Sodium Chloride 8.7 ML IVP PRN (13:51)
[2021-08-25] MEDS: Budesonide/Formoterol 80/4.5 1 PUFF INH IH SCH (20:46)
[2021-08-25] MEDS ORDERED: NON-FORMULARY MEDICATION 1 EACH EACH (Cyclosporine [Restasis] 1 EACH Droperette) OP SCH (21:00)
[2021-08-25] MEDS ORDERED: polyethylene glycoL 3350 17 GM POWD.PACK PO SCH (21:00)
[2021-08-25] MEDS: Magnesium Oxide 400 MG TABLET PO SCH (21:12)
[2021-08-25] MEDS: Apixaban 5 MG TABLET PO SCH (21:12)
[2021-08-26 01:51] LABS: Basophils % 0.2 %; Eosinophils # 0.1 K/mcL (0.0-0.6); Eosinophils % 1.3 %; Hematocrit 34.8 % (35.3-44.9); Hemoglobin 11.7 g/dL (11.5-15.4); Immature Granulocytes % 0.2 % (0-4); Lymphocytes # 1.2 K/mcL (0.6-4.6); Lymphocytes % 24.5 %; Mean Corpuscular HGB Conc 33.6 g/dL (31.6-35.5); Mean Corpuscular Hemoglobin 30.5 pg (28.0-33.3); Mean Corpuscular Volume 90.9 fL (83.0-100.0); Monocytes # 0.6 K/mcL (0.0-1.3); Monocytes % 12.6 %; Neutrophils # 2.9 K/mcL (1.6-8.9); Platelet Count 175 K/mcL (140-400); Red Blood Count 3.83 M/mcL (3.82-4.97); Red Cell Distribution Width 13.2 % (11.5-14.5); Segmented Neutrophils % 61.2 %; White Blood Count 4.7 K/mcL (4.3-11.1)
[2021-08-26 02:25] LABS: BUN/Creatinine Ratio 20 (6-26); Blood Urea Nitrogen 15 mg/dL (8-23); Calcium 8.6 mg/dL (8.6-10.3); Carbon Dioxide 30 mEq/L (23-29); Chloride 99 mEq/L (98-107); Glucose 84 mg/dL (70-105); Magnesium 1.8 mg/dL (1.6-2.6); Osmolality,Calculated 284 (280-300); Potassium 3.7 mEq/L (3.5-5.1); Sodium 137 mEq/L (136-145); Troponin I < 0.03 ng/mL (< 0.04); eGFR For African Americans > 60 (> 60); eGFR For Non-African Americans > 60 (> 60)
[2021-08-26 07:21] VITALS: BP 129/78; PULSE 58; TEMP 97.8; O2SAT 96
[2021-08-26] MEDS ORDERED: hydroCHLOROthiazide 25 MG TABLET PO SCH (09:00)
[2021-08-26] MEDS ORDERED: Ascorbic Acid 500 MG TABLET PO SCH (09:00)
[2021-08-26] MEDS ORDERED: Multivit/Ca/Min/Fe/FA 1 TAB TABLET PO SCH (09:00)
[2021-08-26] MEDS ORDERED: Cholecalciferol (D-3) 1,000 UNIT (25MCG) TABLET PO SCH (09:00)
[2021-08-26] MEDS ORDERED: Vitamin B Complex/Vit C/Vit E 1 EACH TABLET PO SCH (09:00)
[2021-08-26] MEDS ORDERED: Aspirin Enteric Coated 81 MG Tablet PO SCH (09:00)
[2021-08-26] MEDS: Apixaban 5 MG TABLET PO SCH (10:19)
[2021-08-26] MEDS: Magnesium Oxide 400 MG TABLET PO SCH (10:20)
[2021-08-26] MEDS: Budesonide/Formoterol 80/4.5 1 PUFF INH IH SCH (10:25)
== END 2021-08-26 10:50 | disposition home or self-care (01) ==
LOC: 2ANU 10:23 → EMEROOARM 10:23 → SUATTDRO 12:18 → 2ANU 12:58
PROVIDERS: ADMIT Internal Medicine; ATTEND Internal Medicine